=== PATIENT | female | born 1990 | race Caucasian/White ===

== ENCOUNTER 2021-05-29 23:54 | Emergency (ER) | payer SELFPAY ==
[2021-05-30] VITALS (7 sets, daily range): BP systolic 161–227; BP diastolic 84–114; PULSE 89–100; RESP 16–18; TEMP 36.7–37.1; O2SAT 97–100; BMI 60.5
--- NOTE | 2021-05-30 01:11 | USR_ITS ---
PROCEDURE INFORMATION: Exam: US Abdomen, Limited; Right Upper Quadrant Exam date and time: 05/30/2021 1:11 AM Age: 31 years old Clinical indication: Abdominal pain; Acute; Additional info: Ruq pain TECHNIQUE: Imaging protocol: US abdomen. Real time ultrasound with image documentation. Limited exam focused on the right upper quadrant. COMPARISON: CTA Chest-Pulmonary Emb [id number] 12/17/2018 3:43 AM FINDINGS: Liver: Normal. No masses. Gallbladder: Normal. No gallstones. There is no gallbladder wall thickening. Common bile duct: Common bile duct diameter is 5 mm. Pancreas: Visualized pancreas is unremarkable. Right kidney: Normal. No mass. No hydronephrosis. US/US gall bladder [id number] IMPRESSION: Negative examination.
--- NOTE | 2021-05-30 01:12 | ED_ITS ---
HPI - Abdominal Pain General: Chief Complaint: Abdominal Pain Stated Complaint: ABD Pain\N Time Seen by Provider: 05/30/21 00:05 Source: patient Mode of arrival: ambulatory Limitations: no limitations History of Present Illness: 31-year-old female has a history of obesity states that she is eating fried foods roughly 5 hours ago started having right upper quadrant pain. States she had pains multiple times in the past like this after eating but none that is lasted this long states her pain continues and rates it a 7 out of 10. Pain is sharp radiates to her back she is not ever seen one in the past about these planes but she did assume it was her gallbladder denies any fever denies any vomiting has had some slight nausea Associated Symptoms: Denies chills, dysuria and fever(s) Review of Systems Const: Denies: fever(s), chills, body aches or change in appetite Eyes: Denies: blurry vision or eye discomfort ENMT: Denies: throat pain or dental pain Card: Denies: chest pain Resp: Denies: dyspnea GI: Reports: abdominal pain : Denies: dysuria Musc: Denies: neck pain or back pain Skin/Breast: Denies: rash Neuro: Denies: headache(s) Psych: Denies: depression [place]/Lymph: Denies: easy bruising All/Imm: Denies: urticaria PFSH ED PFSH: Medical History No pertinent past medical history neghx: htn,dm,thyroid,dvt/pe Surgical History No pertinent past surgical history Family History Father Heart disease Hypertension Grandmother Diabetes Maternal grandmother Family/Other Diabetes Maternal aunt Maternal uncle Hypertension Maternal uncle Denies family history of Colon cancer Ovarian cancer Hyperlipidemia Breast cancer Family history of thyroid problem Uterine cancer Stroke Physical Exam Const: COMMON NORMALS: no acute distress, patient oriented x3 and healthy cody earing HENMT: COMMON NORMALS: normocephalic and atraumatic HEAD & SCALP: normocephalic and atraumatic Eye: COMMON NORMALS: Equal, round and reactive pupils present and EOMs intact bilaterally PUPIL: Yes Equal, round and reactive pupils present Neck/C-Spine: COMMON NORMALS: full ROM and supple Chest: COMMONS NORMALS: normal inspection of the chest and normal palpation of entire chest wall Resp: COMMON NORMALS: normal respiratory effort, No retractions, No use of accessory muscles and clear to auscultation bilaterally AUSCULTATION: clear to auscultation bilaterally Cardio: COMMON NORMALS: regular rate, regular rhythm and No murmurs present (Cardio) RATE: regular rate RHYTHM: regular rhythm GI: COMMON NORMALS: Normal to inspection, nondistended, normoactive bowel sounds present, Soft to palpation and no masses PALPATION: Yes Soft to palpation and Yes Tenderness to palpation present (GI) Details: RUQ Extremity: COMMON NORMALS: normal to inspection and full ROM Neuro: COMMON NORMALS: patient oriented x3, moves all extremities and no focal motor deficits Psych: COMMON NORMALS: mental status grossly normal, Normal thought process present and cooperative THOUGHT PROCESS: Normal thought process present Skin: COMMON NORMALS: no rashes or lesions noted and no wounds GENERAL SKIN EXAM: no rashes or lesions noted Course Vital Signs: Vital signs: Vital Signs Temperature 98.8 F 05/30/21 02:27 Pulse Rate 100 05/30/21 02:47 Respiratory Rate 18 05/30/21 02:47 Blood Pressure 196/114 05/30/21 02:47 Pulse Oximetry 97 05/30/21 02:47 MDM - Abdominal Pain Medical Decision Making Patient presents with abdominal pain likely biliary dysfunction. Ultrasound showed no signs of cholecystitis patient's blood work here is all normal she is pain-free after pain meds abdominal exam at discharge is benign. She has been hypertensive here she states she has never been hypertensive in her doctor's office before when she checks her blood pressure. Will not start any meds at this time but I will have her check her blood pressure 3 times a day and keep a log and follow-up with her PCP she is to follow-up with surgery for abdominal pain return if worsening she understands agrees to plan. Lab Data : 05/30/21 01:05 05/30/21 01:05 Labs/Radiology: Laboratory Results WBC 13.2 10^3/uL (4.0-10.0) H 05/30/21 01:05 RBC 4.94 10^6/uL (4.1-5.3) 05/30/21 01:05 Hgb 12.8 g/dL (11.5-15.3) 05/30/21 01:05 Hct 39.3 % (37.0-47.0) 05/30/21 01:05 MCV 79.6 fl (81-99) L 05/30/21 01:05 MCH 25.9 pg (28.0-34.0) L 05/30/21 01:05 MCHC 32.6 g/dL (30.0-36.0) 05/30/21 01:05 RDW 14.8 % (12.1-15.1) 05/30/21 01:05 Plt Count 359 10^3/cmm (130-400) 05/30/21 01:05 MPV 9.9 fL (7.4-10.4) 05/30/21 01:05 Neut % (Auto) 77.8 % 05/30/21 01:05 Lymph % (Auto) 15.8 % 05/30/21 01:05 [place] % (Auto) 4.5 % 05/30/21 01:05 Eos % (Auto) 1.4 % 05/30/21 01:05 Baso % (Auto) 0.2 % 05/30/21 01:05 Neut # (Auto) 10.29 10^3/uL (1.8-7.7) H 05/30/21 01:05 Lymph # (Auto) 2.1 10^3/uL (0.8-4.8) 05/30/21 01:05 [place] # (Auto) 0.6 10^3/uL (0.2-0.9) 05/30/21 01:05 Eos # (Auto) 0.2 10^3/uL (0.0-0.8) 05/30/21 01:05 Baso # (Auto) 0.0 10^3/uL (0.0-0.1) 05/30/21 01:05 Nucleated RBC % (auto) 0 % 05/30/21 01:05 Nucleated RBCs # 0.0 /100WBC 05/30/21 01:05 Sodium 133 mmol/L (136-145) L 05/30/21 01:05 Potassium 4.0 mmol/L (3.5-5.1) 05/30/21 01:05 Chloride 98 mmol/L (98-107) 05/30/21 01:05 Carbon Dioxide 26 mmol/L (22-29) 05/30/21 01:05 Anion Gap 13.0 (5-19) 05/30/21 01:05 BUN 12 mg/dL (6-20) 05/30/21 01:05 Creatinine 0.5 mg/dL (0.5-0.9) 05/30/21 01:05 GFR Calculation 142.1 mL/min (90-130) H 05/30/21 01:05 Glucose 140 mg/dL (65-115) H 05/30/21 01:05 Calculated Osmolality 278 mOsm/kg (285-295) L 05/30/21 01:05 Calcium 8.7 mg/dL (8.5-10.5) 05/30/21 01:05 Total Bilirubin 0.4 mg/dL (0.15-1.2) 05/30/21 01:05 AST 11 U/L (0-32) 05/30/21 01:05 ALT 12 U/L (0-33) 05/30/21 01:05 Alkaline Phosphatase 127 IU/L (35-105) H 05/30/21 01:05 Total Protein 7.1 g/dL (6.6-8.7) 05/30/21 01:05 Albumin 4.4 g/dL (3.5-5.2) 05/30/21 01:05 Globulin 2.7 g/dL (1.3-4.6) 05/30/21 01:05 Lipase 17 U/L (13-60) 05/30/21 01:05 HCG, Qual Negative (Negative) 05/30/21 01:05 Urine Color Yellow (Yellow) 05/30/21 01:58 Urine Appearance Clear (CLEAR) 05/30/21 01:58 Urine pH 7 (5-7) 05/30/21 01:58 Ur Specific [place] 1.010 (1.005-1.030) 05/30/21 01:58 Urine Protein Neg (Negative) 05/30/21 01:58 Urine Glucose (UA) Norm (Normal) 05/30/21 01:58 Urine Ketones Negative (Negative) 05/30/21 01:58 Urine Blood 2+ (Negative) H 05/30/21 01:58 Urine Nitrate Negative (Negative) 05/30/21 01:58 Urine Bilirubin Neg (Negative) 05/30/21 01:58 Urine Urobilinogen Norm mg/dL (Negative) 05/30/21 01:58 Ur Leukocyte Esterase Negative (Negative) 05/30/21 01:58 Urine RBC Rare /hpf (0-2) 05/30/21 01:58 Urine WBC Rare /hpf (0-5) 05/30/21 01:58 Ur Squamous Epith Cells Rare /hpf (0-5) 05/30/21 01:58 Amorphous Sediment Not Reportable 05/30/21 01:58 Urine Bacteria Trace /hpf (NONE) 05/30/21 01:58 Discharge Plan Discharge Patient Disposition: Home Clinical Impression: Abdominal pain, Hypertension Condition: Stable Prescriptions: No Action escitalopram oxalate [Lexapro] 10 mg tablet 10 mg PO DAILY 0RF norgestimate-ethinyl estradiol [Sprintec (28)] 0.25-35 mg-mcg tablet 1 tab PO DAILY Qty: 84 4RF Discharge Orders: Discharge ED (Routine); Ordered 05/30/21 Ordered By: Elsy Damon Referrals: [facility] [Other] Diego Andujar MD [Physician] - 1-3 days Discharge Diet: Low Cholesterol Discharge Activity: Resume usual activity Patient Instructions: Abdominal Pain (ED) Coding Level of Care Code ED Customer Operations Intern for Giuliana Fwd Exam Comprehensive
[2021-05-30 01:14] LABS: Basophils % 0.2 %; Eosinophils # 0.2 10^3/uL (0.0-0.8); Eosinophils % 1.4 %; Hematocrit 39.3 % (37.0-47.0); Hemoglobin 12.8 g/dL (11.5-15.3); Lymphocytes # 2.1 10^3/uL (0.8-4.8); Lymphocytes % 15.8 %; Mean Corpuscular HGB Conc 32.6 g/dL (30.0-36.0); Mean Corpuscular Hemoglobin 25.9 pg (28.0-34.0); Mean Corpuscular Volume 79.6 fl (81-99); Mean Platelet Volume 9.9 fL (7.4-10.4); Monocytes # 0.6 10^3/uL (0.2-0.9); Monocytes % 4.5 %; Neutrophils # 10.29 10^3/uL (1.8-7.7); Neutrophils % 77.8 %; Nucleated Red Blood Cells % 0 %; Platelet Count 359 10^3/cmm (130-400); Red Blood Count 4.94 10^6/uL (4.1-5.3); Red Cell Distribution Width 14.8 % (12.1-15.1); White Blood Count 13.2 10^3/uL (4.0-10.0)
[2021-05-30] MEDS: morphine 4 mg/mL SDV 1 mL IVP (01:24)
[2021-05-30] MEDS: ondansetron 2 mg/ML SDV 2 mL 4 MG IVP (01:24)
[2021-05-30 01:41] LABS: Alanine Aminotransferase 12 U/L (0-33); Albumin Level 4.4 g/dL (3.5-5.2); Alkaline Phosphatase 127 IU/L (35-105); Aspartate Amino Transferase 11 U/L (0-32); Blood Urea Nitrogen 12 mg/dL (6-20); Calcium 8.7 mg/dL (8.5-10.5); Carbon Dioxide 26 mmol/L (22-29); Chloride 98 mmol/L (98-107); Globulin 2.7 g/dL (1.3-4.6); Glomerular Filtration Rate 142.1 mL/min (90-130); Glucose 140 mg/dL (65-115); Lipase 17 U/L (13-60); Osmolality Calculated 278 mOsm/kg (285-295); Sodium 133 mmol/L (136-145); Total Bilirubin 0.4 mg/dL (0.15-1.2); Total Protein 7.1 g/dL (6.6-8.7)
[2021-05-30 01:44] LABS: HCG, Serum Qual Negative (Negative)
--- NOTE | 2021-05-30 02:01 | PC.NURSE ---
patient given urine hat and cup and escorted to restroom. patient able to obtain sample. sample labeled and sent to lab. patient returned to room with out difficulty. patient in no obivous distress.
--- NOTE | 2021-05-30 02:28 | PC.NURSE ---
ultrasound at bedside performing procedure. patient in no obvious distress.
[2021-05-30 02:30] LABS: Add Urine Microscopic? YES; Bilirubin Urine Neg (Negative); Blood Urine 2+ (Negative); Glucose Urine UA Norm (Normal); Ketones Urine Negative (Negative); Leukocyte Esterase Urine Negative (Negative); Nitrate Urine Negative (Negative); Protein Urine Neg (Negative); Urine Appearance Clear (CLEAR); Urine Color Yellow (Yellow); Urobilinogen Urine Norm (Negative); pH Urine 7 (5-7)
[2021-05-30 02:31] LABS: Bacteria Urine TRACE /hpf; RBC Urine RARE /hpf (0-2); Squamous Epithelial Cell Urine RARE /hpf (0-5); WBC Urine RARE /hpf (0-5)
[2021-05-30] MEDS: labetalol 5 mg/mL SDV 20mL 10 MG IVP (02:50)
--- NOTE | 2021-05-30 15:08 | DCPLANNER ---
Addendum entered by Haily Mckee 06/26/21 12:06: Patient was seen by Dr. Andujar. Original Note: deputy manager had message to schedule a follow up appointment for patient with Dr. Andujar. deputy manager faxed patients information to the office of Dr. Andujar, who will call patient with appointment information.
== END 2021-05-30 03:51 | disposition home or self-care (01) ==
PROVIDERS: Nurse Practitioner Family; Emergency Provider Emergency Medicine
DX: R10.9 Unspecified abdominal pain (principal); I10 Essential (primary) hypertension
CPT/HCPCS: 76705; 80053; 81001; 83690; 84703; 85025; 96374; 96375; 99283; J2270; J2405; J3490

== ENCOUNTER 2022-11-29 23:34 | Emergency (ER) | payer OTHER, SELFPAY ==
[2022-11-29 23:42] VITALS: BP 157/83; PULSE 84; RESP 18; TEMP 36.7; O2SAT 97; BMI 60.5
--- NOTE | 2022-11-30 00:30 | CTR_ITS ---
PROCEDURE INFORMATION: Exam: CT Abdomen And Pelvis With Contrast Exam date and time: 11/30/2022 1:18 AM Age: 32 years old Clinical indication: Abdominal pain; Patient HX: C/O periumbilical pain. History of pcos. ; Additional info: Abd pain TECHNIQUE: Imaging protocol: Computed tomography of the abdomen and pelvis with contrast. Radiation optimization: All CT scans at this facility use at least one of these dose optimization techniques: automated exposure control; mA and/or kV adjustment per patient size (includes targeted exams where dose is matched to clinical indication); or iterative reconstruction. Contrast material: OMNI 350; Contrast volume: 100 ml; Contrast route: INTRAVENOUS (IV); REPORTING DATA: Count of CT and Cardiac NM exams in prior 12 months: This patient has received 0 known CTs and 0 known cardiac nuclear medicine studies in the 12 months prior to the current study. COMPARISON: US gall bladder [id number] 05/30/2021 2:26 AM RADIATION DOSE METRICS: Total DLP (mGy-cm): 1174.83 FINDINGS: Liver: Normal. No mass. Gallbladder and bile ducts: Heterogeneous density in the gallbladder likely represents a noncalcified stone. Pancreas: Normal. No ductal dilation. Spleen: The spleen is mildly enlarged measuring 13.4 cm. Adrenal glands: Normal. No mass. Kidneys and ureters: Normal. No hydronephrosis. Stomach and bowel: Unremarkable. No obstruction. No mucosal thickening. Appendix: No evidence of appendicitis. Intraperitoneal space: Unremarkable. No free air. No significant fluid collection. Vasculature: Unremarkable. No abdominal aortic aneurysm. Lymph nodes: Unremarkable. No enlarged lymph nodes. Urinary bladder: Unremarkable as visualized. Reproductive: Unremarkable as visualized. Bones/joints: There are [id number] degenerative changes in the visualized spine. Degenerative changes extend across the sacroiliac joints. Soft tissues: Unremarkable. CT/CT abdomen pelvis w con* [id number] IMPRESSION: 1. Heterogeneous density in the gallbladder likely represents a noncalcified stone. 2. The spleen is mildly enlarged measuring 13.4 cm.
[2022-11-30 00:31] LABS: Basophils % 0.2 %; Eosinophils # 0.2 10^3/uL (0.0-0.8); Eosinophils % 1.9 %; Hematocrit 36.7 % (37.0-47.0); Hemoglobin 11.8 g/dL (11.5-15.3); Lymphocytes # 2.4 10^3/uL (0.8-4.8); Lymphocytes % 22.3 %; Mean Corpuscular HGB Conc 32.2 g/dL (30.0-36.0); Mean Corpuscular Hemoglobin 26.9 pg (28.0-34.0); Mean Corpuscular Volume 83.6 fl (81-99); Mean Platelet Volume 9.8 fL (7.4-10.4); Monocytes # 0.7 10^3/uL (0.2-0.9); Monocytes % 6.7 %; Neutrophils % 68.4 %; Nucleated Red Blood Cells % 0 %; Platelet Count 297 10^3/cmm (130-400); Red Blood Count 4.39 10^6/uL (4.1-5.3); Red Cell Distribution Width 14.6 % (12.1-15.1); White Blood Count 10.5 10^3/uL (4.0-10.0)
[2022-11-30] MEDS: sodium chloride 0.9% 1,000 ML 999 ML IV (00:32)
[2022-11-30 00:46] LABS: HCG, Serum Qual Negative (Negative)
[2022-11-30 00:47] LABS: Alanine Aminotransferase 15 U/L (0-33); Albumin Level 4.1 g/dL (3.5-5.2); Alkaline Phosphatase 102 U/L (35-105); Aspartate Amino Transferase 13 U/L (0-32); Blood Urea Nitrogen 13 mg/dL (6-20); Calcium 8.9 mg/dL (8.5-10.5); Carbon Dioxide 27 mmol/L (22-29); Chloride 103 mmol/L (98-107); Globulin 2.6 g/dL (1.3-4.6); Glomerular Filtration Rate 141.2 mL/min (90-130); Glucose 168 mg/dL (65-115); Lipase 25 U/L (13-60); Osmolality Calculated 292 mOsm/kg (285-295); Sodium 139 mmol/L (136-145); Total Bilirubin 0.4 mg/dL (0.15-1.2); Total Protein 6.7 g/dL (6.6-8.7)
[2022-11-30 00:57] VITALS: BP 113/71; PULSE 79; O2SAT 95
--- NOTE | 2022-11-30 01:16 | ED_ITS ---
HPI - Abdominal Pain General: Chief Complaint: Abdominal Pain Stated Complaint: ABD Pain Time Seen by Provider: 11/29/22 23:48 Source: patient History of Present Illness: 32-year-old female complaining of periumbilical and right lower quadrant pain. She notes 12 hours of pain or so. She is minimally nauseated. No vomiting or diarrhea. No fever. No history of belly surgery. She does not believe she is . MD elicited complaint: abdominal pain Pertinent past history: none Location: Periumbilical and RLQ Quality: stabbing and other (Intermittent) Migration to: no migration Associated Symptoms: Denies diarrhea, fever(s), melena, nausea, poor appetite and vomiting Review of Systems Const: Denies: fever(s) ENMT: Denies: throat pain Card: Denies: chest pain Resp: Denies: dyspnea GI: Reports: abdominal pain; Denies: nausea, vomiting, diarrhea or melena : Denies: flank pain or difficulty voiding PFSH ED PFSH: Medical History Hypertension taking lisinopril 10mg daily for management No pertinent past medical history neghx:dm,thyroid,dvt/pe PCO (polycystic ovaries) Psychiatric care Surgical History No pertinent past surgical history Family History Father Heart disease Hypertension Grandmother Diabetes Maternal grandmother Family/Other Diabetes Maternal aunt Maternal uncle Hypertension Maternal uncle Denies family history of Colon cancer Ovarian cancer Hyperlipidemia Breast cancer Family history of thyroid problem Uterine cancer Stroke Social History Smoking and tobacco status: never smoked Physical Exam Const: COMMON NORMALS: no acute distress GENERAL APPEARANCE: cooperative; not ill appearing and not frail appearing HENMT: COMMON NORMALS: normocephalic, atraumatic and Normal external nose present HEAD & SCALP: normocephalic and atraumatic FACE & SINUS: normal facial exam and face symmetric NOSE: Normal external nose present Eye: COMMON NORMALS: Equal, round and reactive pupils present and EOMs intact bilaterally PUPIL: Yes Equal, round and reactive pupils present Neck/C-Spine: GENERAL: Yes trachea midline Chest: CHEST: Yes Symmetrical chest wall rise Resp: COMMON NORMALS: normal respiratory effort, No retractions, No use of accessory muscles and clear to auscultation bilaterally AUSCULTATION: clear to auscultation bilaterally Cardio: COMMON NORMALS: regular rate and regular rhythm RATE: regular rate RHYTHM: regular rhythm GI: COMMON NORMALS: Normal to inspection, nondistended, normoactive bowel sounds present PALPATION: Yes Tenderness to palpation present (GI) (Periumbilical) Details: RLQ Extremity: COMMON NORMALS: no pedal edema Neuro: GREG COMA SCALE: document GCS findings [place] coma scale eye opening: Spontaneous [place] coma scale verbal response: Orientated [place] coma scale motor response: Obey commands [place] coma scale total score: 15 SENSORY EXAM: Yes extremities (intact) Psych: COMMON NORMALS: speech normal SPEECH: Yes normal speech Skin: COMMON NORMALS: no rashes or lesions noted GENERAL SKIN EXAM: no rashes or lesions noted Course Vital Signs: Vital signs: Vital Signs Temperature 98.1 F 11/29/22 23:42 Pulse Rate 95 11/30/22 03:36 Respiratory Rate 16 11/30/22 03:36 Blood Pressure 156/97 11/30/22 01:30 Pulse Oximetry 96 11/30/22 03:36 Oxygen Delivery Me thod Room Air 11/30/22 00:57 MDM - Abdominal Pain Medical Decision Making 32-year-old female presenting with epigastric and right-sided pain. No fever. No vomiting. She is somewhat tender. White count is 10.5. CRP is elevated at 32. Other laboratory is not remarkable. CT shows heterogenous density in the gallbladder likely representing a noncalcified stone. Spleen is mildly enlarged. Likely biliary colic. Pain is improved to some degree. Will discharge for outpatient follow-up with surgery. Lab Data 11/30/22 00:26 11/30/22 00:26 Labs/Radiology: Radiology Impressions Abdomen/Pelvis CT 11/30/22 00:30 IMPRESSION: 1. Heterogeneous density in the gallbladder likely represents a noncalcified stone. 2. The spleen is mildly enlarged measuring 13.4 cm. Laboratory Results WBC 10.5 10^3/uL (4.0-10.0) H 11/30/22 00:26 RBC 4.39 10^6/uL (4.1-5.3) 11/30/22 00:26 Hgb 11.8 g/dL (11.5-15.3) 11/30/22 00:26 Hct 36.7 % (37.0-47.0) L 11/30/22 00: MCV 83.6 fl (81-99) 11/30/22 00: MCH 26.9 pg (28.0-34.0) L 11/30/22 00: MCHC 32.2 g/dL (30.0-36.0) 11/30/22 00: RDW 14.6 % (12.1-15.1) 11/30/22 00: Plt Count 297 10^3/cmm (130-400) 11/30/22 00: MPV 9.8 fL (7.4-10.4) 11/30/22 00: Neut % (Auto) 68.4 % 11/30/22 00: Lymph % (Auto) 22.3 % 11/30/22 00: [place] % (Auto) 6.7 % 11/30/22 00: Eos % (Auto) 1.9 % 11/30/22 00:26 Baso % (Auto) 0.2 % 11/30/22 00: Neut # (Auto) 7.20 10^3/uL (1.8-7.7) 11/30/22 00: Lymph # (Auto) 2.4 10^3/uL (0.8-4.8) 11/30/22 00:26 [place] # (Auto) 0.7 10^3/uL (0.2-0.9) 11/30/22 00:26 Eos # (Auto) 0.2 10^3/uL (0.0-0.8) 11/30/22 00:26 Baso # (Auto) 0.0 10^3/uL (0.0-0.1) 11/30/22 00:26 Nucleated RBC % (auto) 0 % 11/30/22 00: Nucleated RBCs # 0.0 /100WBC 11/30/22 00:26 Sodium 139 mmol/L (136-145) 11/30/22 00: Potassium 4.0 mmol/L (3.5-5.1) 11/30/22 00:26 Chloride 103 mmol/L (98-107) 11/30/22 00:26 Carbon Dioxide 27 mmol/L (22-29) 11/30/22 00:26 Anion Gap 13.0 (5-19) 11/30/22 00:26 BUN 13 mg/dL (6-20) 11/30/22 00:26 Creatinine 0.5 mg/dL (0.5-0.9) 11/30/22 00:26 GFR Calculation 141.2 mL/min (90-130) H 11/30/22 00:26 Glucose 168 mg/dL (65-115) H 11/30/22 00:26 Calculated Osmolality 292 mOsm/kg (285-295) 11/30/22 00:26 Calcium 8.9 mg/dL (8.5-10.5) 11/30/22 00:26 Total Bilirubin 0.4 mg/dL (0.15-1.2) 11/30/22 00:26 AST 13 U/L (0-32) 11/30/22 00: ALT 15 U/L (0-33) 11/30/22 00:26 Alkaline Phosphatase 102 U/L (35-105) 11/30/22 00:26 C-Reactive Protein 32.0 mg/L (0.0-4.9) H 11/30/22 00:26 Total Protein 6.7 g/dL (6.6-8.7) 11/30/22 00:26 Albumin 4.1 g/dL (3.5-5.2) 11/30/22 00:26 Globulin 2.6 g/dL (1.3-4.6) 11/30/22 00:26 Lipase 25 U/L (13-60) 11/30/22 00:26 HCG, Qual Negative (Negative) 11/30/22 00:26 Urine Color Yellow (Yellow) 11/30/22 01:55 Urine Appearance Clear (CLEAR) 11/30/22 01:55 Urine pH 6.5 (5-7) 11/30/22 01:55 Ur Specific [place] 1.015 (1.005-1.030) 11/30/22 01:55 Urine Protein Neg (Negative) 11/30/22 01:55 Urine Glucose (UA) Norm (Normal) 11/30/22 01:55 Urine Ketones Negative (Negative) 11/30/22 01:55 Urine Blood Trace (Negative) H 11/30/22 01:55 Urine Nitrate Negative (Negative) 11/30/22 01:55 Urine Bilirubin Neg (Negative) 11/30/22 01:55 Urine Urobilinogen Norm mg/dL (Negative) 11/30/22 01:55 Ur Leukocyte Esterase Negative (Negative) 11/30/22 01:55 Urine RBC 0-4 /hpf (0-2) H 11/30/22 01:55 Urine WBC None /hpf (0-5) 11/30/22 01:55 Ur Squamous Epith Cells 0-4 /hpf (0-5) H 11/30/22 01:55 Amorphous Sediment Not Reportable 11/30/22 01:55 Urine Bacteria Trace /hpf (NONE) 11/30/22 01:55 Urine Mucus Trace /hpf 11/30/22 01:55 Discharge Plan Discharge Patient Disposition: Home Clinical Impression: Biliary colic Condition: Stable Prescriptions: New hydrocodone-acetaminophen 5-325 mg tablet 1 tab PO Q8H PRN (Reason: pain) Qty: 7 0RF ondansetron 4 mg film 4 mg PO DAILY PRN (Reason: nausea and vomiting) Qty: 10 0RF No Action escitalopram oxalate [Lexapro] 10 mg tablet 10 mg PO DAILY lisinopril 10 mg tablet 10 mg PO DAILY triamcinolone acetonide 0.1 % ointment 1 applic topical BID Qty: 80 2RF Rx Instructions: Apply to affected area no more than two weeks per month. Not for face. norethindrone (contraceptive) 0.35 mg tablet 0.35 mg PO DAILY Qty: 84 3RF Discharge Orders: Discharge ED (Routine); Ordered 11/30/22 Ordered By: Akin Guthrie Referrals: Diego Andujar MD [Physician] - 4-7 days Patient Instructions: Abdominal Pain (ED), Opioid Safety, Pain Management Activity Restrictions/Additional Instructions: Return for fever greater than 100, vomiting liquids or medications, worsening pain despite treatment, other concerning symptoms. Follow-up with your doctor next week. Further outpatient testing may be needed. Coding Level of Care Code ED Tumbling Barrel Painter for Giuliana Demarco
[2022-11-30] MEDS: iohexol 350 mg/mL 500 mL Btl (per mL) IV (01:18)
[2022-11-30 01:30] VITALS: BP 156/97; PULSE 92; O2SAT 97
[2022-11-30 02:28] LABS: Add Urine Microscopic? YES; Bilirubin Urine Neg (Negative); Blood Urine Trace (Negative); Glucose Urine UA Norm (Normal); Ketones Urine Negative (Negative); Leukocyte Esterase Urine Negative (Negative); Nitrate Urine Negative (Negative); Protein Urine Neg (Negative); Specific Gravity, Urine 1.015 (1.005-1.030); Urine Appearance Clear (CLEAR); Urine Color Yellow (Yellow); Urobilinogen Urine Norm (Negative); pH Urine 6.5 (5-7)
[2022-11-30 02:36] LABS: Bacteria Urine TRACE /hpf; Mucus Urine TRACE /hpf; RBC Urine 0-4 /hpf (0-2); Squamous Epithelial Cell Urine 0-4 /hpf (0-5)
[2022-11-30] MEDS: ondansetron 2 mg/ML SDV 2 mL 4 MG IVP (03:01)
[2022-11-30] MEDS: morphine 4 mg/mL SDV 1 mL IVP (03:04)
[2022-11-30 03:36] VITALS: PULSE 95; RESP 16; O2SAT 96
== END 2022-11-30 03:21 | disposition home or self-care (01) ==
PROVIDERS: Emergency Provider Emergency Medicine
DX: K80.50 Calculus of bile duct without cholangitis or cholecystitis without obstruction (principal); I10 Essential (primary) hypertension; Z79.899 Other long term (current) drug therapy
CPT/HCPCS: 74177; 80053; 81001; 83690; 84703; 85025; 86140; 96361; 96374; 96375; 99285; J2270; J2405; J7030; Q9967

== ENCOUNTER 2023-08-07 10:41 | Outpatient (CLI) | payer OTHER, SELFPAY | END 2023-08-07 10:42 | disposition home or self-care (01) | PROVIDERS: Visit Provider Nurse Practitioner Family | DX: Z32.01 Encounter for pregnancy test, result positive (principal) | CPT/HCPCS: 84702 ==

== ENCOUNTER 2023-08-20 18:52 | Emergency (ER) | payer OTHER, SELFPAY ==
[2023-08-20 18:55] VITALS: BP 167/81; PULSE 78; RESP 16; TEMP 36.9; O2SAT 95
--- NOTE | 2023-08-20 19:22 | USR_ITS ---
PROCEDURE INFORMATION: Exam: US First Trimester, Transabdominal and US , Transvaginal Exam date and time: 08/20/2023 7:59 PM Age: 33 years old Clinical indication: Lmp or gestational age (in weeks): 10w 2d by lmp 9w 0d by crl; Antepartum complications; ; Patient HX: Morbidly obesity g1-p0 presenting with left pelvic cramping and vaginal bleeding. Note that there was no blood seen on the endovaginal transducer at end exam. Also no overt bleeding onto chux pad. I see no blood. ; Additional info: Cramping/bleeding LABS AND CLINICAL REPORTS: Last menstrual period start date: 06/09/2023 Gestational age (Established): 10 w 2 d TECHNIQUE: Imaging protocol: Real-time transabdominal obstetrical ultrasound of the maternal pelvis and a first trimester , less than 14 weeks 0 days, with image documentation. Transvaginal imaging was used for better evaluation of the fetus, adnexa, and/or cervix. COMPARISON: No relevant prior studies available. FINDINGS: Gestation: Intrauterine gestation is visualized. pole is visualized. No yolk sac is visualized. Embryonic/ heart rate: 166 bpm Extra-embryonic membranes/Placenta: Unremarkable. No subchorionic bleed. Amniotic fluid: Amniotic fluid and extra-amniotic fluid is normal for gestational age. BIOMETRY: Gestational age (AUA): 9 w 0 d Estimated due date (AUA): 03/24/2024 [place]-Rump length (CRL): 23.2 mm. EGA (CRL) is 9 w 0 d MATERNAL: Uterus: Uterus measures 11.01 cm x 5.68 cm x 4.81 cm. Cervix: Unremarkable. Right ovary/adnexa: Not visualized. Left ovary/adnexa: Not visualized. Intraperitoneal space: No intraperitoneal free fluid. US/US OB <=14 wk fetus w transvag IMPRESSION: Single live intrauterine .
--- NOTE | 2023-08-20 19:23 | ED_ITS ---
HPI - Female Genitourinary 2 General: Chief complaint: Vaginal Bleeding Stated complaint: 10 wks spotting, cramping Time Seen by Provider: 08/20/23 19:05 Source: patient Mode of arrival: ambulatory Limitations: no limitations History of Present Illness: Patient is a 33-year-old female at approximately 10 weeks here for complaints of abdominal cramping and spotting when wiping. Symptoms started yesterday. She has not noticed any bleeding apart from the small amount of pink spotting while wiping on the toilet paper. She states she plans on using Dr. Dalal for her OB but she has not seen them yet. Appointment is scheduled for later this month. She states based on her LMP she should be roughly 10 weeks. She has not had a confirmed IUP at this point. MD elicited complaint: vaginal bleeding and pelvic pain Onset (ago): day(s) Severity: mild Quality of pain: cramping Consistency: intermittent Vaginal discharge: none Vaginal bleeding: scant Exacerbating factors: none Relieving factors: none Associated symptoms: Reports no associated symptoms; Deny nausea or vaginal discharge Treatment prior to arrival: none Sexual activity: Yes Patient : Yes Date of Last Menstrual Period: 06/09/23 Related Data: : 1 Review of Systems 2 Card: Denies: chest pain Resp: Denies: dyspnea GI: Denies: nausea, vomiting or diarrhea : Denies: flank pain, difficulty voiding, dysuria, urinary frequency, urinary urgency, urinary hesitancy, vaginal odor or vaginal discharge Musc: Denies: back pain Neuro: Denies: dizziness PFSH ED 2 PFSH: Medical History Psychiatric care Hypertension taking lisinopril 10mg daily for management No pertinent past medical history neghx:dm,thyroid,dvt/pe PCP: Kiersten Denson PCO (polycystic ovaries) Surgical History No pertinent past surgical history Family History Father Heart disease Hypertension Grandmother Diabetes Maternal grandmother Family/Other Diabetes Maternal aunt Maternal uncle Hypertension Maternal uncle Denies family history of Colon cancer Ovarian cancer Hyperlipidemia Breast cancer Family history of thyroid problem Uterine cancer Stroke Social History Smoking and tobacco/nicotine status: never used tobacco/nicotine Female Reproductive History: Date of last menstrual period: 06/09/23 G ravida: 1 Physical Exam 2 Const: COMMON NORMALS: no acute distress, patient oriented x3, no limitations, alert and well nourished GENERAL APPEARANCE: cooperative NUTRITIONAL APPEARANCE: obese morbidly obese (BMI is 66.7) ORIENTATION/CONSCIOUSNESS: Yes awake, Yes oriented to person, Yes oriented to place and Yes oriented to time Resp: COMMON NORMALS: normal respiratory effort and clear to auscultation bilaterally AUSCULTATION: clear to auscultation bilaterally Cardio: COMMON NORMALS: regular rate and regular rhythm RATE: regular rate RHYTHM: regular rhythm GI: COMMON NORMALS: Normal to inspection, nondistended, normoactive bowel sounds present, Soft to palpation, non-tender, No hepatosplenomegaly present and no masses INSPECTION: Yes normal to inspection PALPATION: Yes Soft to palpation and Yes No hepatosplenomegaly present : COMMON NORMALS: Yes no CVA tenderness BLADDER/KIDNEY EXAM: Yes no CVA tenderness Back/Pelvis: COMMON NORMALS: no CVA tenderness Extremity: GENERAL: Yes normal exam except as noted Neuro: RASHI COMA SCALE: document GCS findings [place] coma scale eye opening: Spontaneous [place] coma scale verbal response: Orientated [place] coma scale motor response: Obey commands Rashi coma scale total score: 15 COMMON NORMALS: patient oriented x3, moves all extremities, no focal motor deficits and no sensory deficits noted SENSORIUM/ORIENTATION: Yes alert, Yes oriented to person, Yes oriented to place and Yes oriented to time Skin: COMMON NORMALS: no rashes or lesions noted GENERAL SKIN EXAM: no rashes or lesions noted Course 2 Vital Signs: Vital signs: Vital Signs Temperature 98.5 F 08/20/23 18:55 Pulse Rate 78 08/20/23 18:55 Respiratory Rate 16 08/20/23 18:55 Blood Pressure 167/81 08/20/23 18:55 Pulse Oximetry 95 08/20/23 18:55 Oxygen Delivery Me thod Room Air 08/20/23 18:55 MDM - Female Medical Decision Making Patient's ultrasound showing a live IUP with dates of 9w0d and a HR of 166. Blood work is unremarkable. She is Rh- and thus was given RhoGAM due to the bleeding. She states she has a follow-up appoint with Dr. Dalal later this month. Return ED precautions given. Medical Records I reviewed the patient's medical records. Lab Data I reviewed the patient's lab results. 08/20/23 21:00 Radiology Impressions Obstetrics Ultrasound 08/20/23 19:22 IMPRESSION: Single live intrauterine . Laboratory Results WBC 11.63 10^3/uL (3.29-11.43) H 08/20/23 21:00 Corrected WBC Cancelled 08/20/23 20:35 RBC 4.25 10^6/uL (3.85-5.65) 08/20/23 21:00 Hgb 11.60 g/dL (11.27-16.99) 08/20/23 21:00 Hct 36.5 % (36-47) 08/20/23 21:00 MCV 85.9 fl (85-98) 08/20/23 21:00 MCH 27.3 pg (27-33) 08/20/23 21:00 MCHC 31.8 g/dL (30-55) 08/20/23 21:00 RDW 14.7 % (12.1-15.1) 08/20/23 21:00 Plt Count 292 10^3/cmm (157-399) 08/20/23 21:00 MPV 10.2 fL (7.4-10.4) 08/20/23 21:00 Gran % Cancelled 08/20/23 20:35 Neut % (Auto) 64.0 % 08/20/23 21:00 Lymph % (Auto) 27.1 % 08/20/23 21:00 [place] % (Auto) 5.8 % 08/20/23 21:00 Eos % (Auto) 1.7 % 08/20/23 21:00 Baso % (Auto) 0.3 % 08/20/23 21:00 Neut # (Auto) 7.43 10^3/uL (1.8-7.7) 08/20/23 21:00 Lymph # (Auto) 3.2 10^3/uL (0.8-4.8) 08/20/23 21:00 [place] # (Auto) 0.7 10^3/uL (0.2-0.9) 08/20/23 21:00 Eos # (Auto) 0.2 10^3/uL (0.0-0.8) 08/20/23 21:00 Baso # (Auto) 0.0 10^3/uL (0.0-0.1) 08/20/23 21:00 Absolute Gran (auto) Cancelled 08/20/23 20:35 Nucleated RBC % (auto) Cancelled 08/20/23 20:35 Nucleated RBCs # Cancelled 08/20/23 20:35 Ser , Semi-Qnt 91025.00 mIU/mL 08/20/23 20:35 Urine Color Yellow (Yellow) 08/20/23 19:25 Urine Appearance Sl hazy (CLEAR) A 08/20/23 19:25 Urine pH 5 (5-7) 08/20/23 19:25 Ur Specific [place] 1.025 (1.005-1.030) 08/20/23 19:25 Urine Protein Neg (Negative) 08/20/23 19:25 Urine Glucose (UA) Norm (Normal) 08/20/23 19:25 Urine Ketones Negative (Negative) 08/20/23 19:25 Urine Blood 3+ (Negative) H 08/20/23 19:25 Urine Nitrate Negative (Negative) 08/20/23 19:25 Urine Bilirubin Neg (Negative) 08/20/23 19:25 Urine Urobilinogen Norm mg/dL (Negative) 08/20/23 19:25 Ur Leukocyte Esterase Negative (Negative) 08/20/23 19:25 Urine RBC 0-4 /hpf (0-2) H 08/20/23 19:25 Urine WBC None /hpf (0-5) 08/20/23 19:25 Ur Squamous Epith Cells 10-15 /hpf (0-5) H 08/20/23 19:25 Amorphous Sediment Not Reportable 08/20/23 19:25 Urine Bacteria Trace /hpf (NONE) 08/20/23 19:25 Urine Mucus Trace /hpf 08/20/23 19:25 Blood Type O Negative 08/20/23 21:14 Rho(D) Type Rh negative 08/20/23 21:14 Antibody Screen Negative 08/20/23 21:14 All radiology interpretation(s) finalized by discharge Discharge Plan Discharge Patient Disposition: Home Clinical Impression: Bleeding in early Condition: Stable Prescriptions: No Action lisinopril 10 mg tablet 10 mg PO DAILY triamcinolone acetonide 0.1 % ointment 1 applic topical BID PRN Rx Instructions: Apply to affected area no more than two weeks per month. Not for face. medroxyprogesterone [Provera] 10 mg tablet 10 mg PO QDAY Qty: 10 6RF MelatoninMax 10 mg tablet,chewable 10 mg PO DAILY escitalopram oxalate [Lexapro] 20 mg tablet 20 mg PO DAILY Qty: 90 0RF Rx Instructions: Take one tablet by mouth every evening hydrocodone-acetaminophen 5-325 mg tablet 1 tab PO Q8H PRN (Reason: pain) Qty: 7 0RF ondansetron 4 mg film 4 mg PO DAILY PRN (Reason: nausea and vomiting) Qty: 10 0RF Discharge Orders: Discharge ED (Routine); Ordered 08/20/23 Ordered By: Esther Sam Referrals: Kiersten Chávez, RELIGION TEACHER [Primary Care Provider] - Activity Restrictions/Additional Instructions: As we discussed please follow-up with Dr. Dalal as you are currently scheduled. You did receive RhoGAM today as you are Rh-. Ultrasound today showed a live intrauterine measuring 9w0d with a heart rate of 166. Coding Level of Care Code ED Services Clerk for Giuliana Demarco
[2023-08-20 19:59] LABS: Blood Urine 3+ (Negative); Glucose Urine UA Norm (Normal); Ketones Urine Negative (Negative); Protein Urine Neg (Negative); Specific Gravity, Urine 1.025 (1.005-1.030); Urine Appearance SL Hazy (CLEAR); Urine Color Yellow (Yellow); pH Urine 5 (5-7)
[2023-08-20 20:00] LABS: Add Urine Microscopic? YES; Bilirubin Urine Neg (Negative); Leukocyte Esterase Urine Negative (Negative); Nitrate Urine Negative (Negative); Urobilinogen Urine Norm (Negative)
[2023-08-20 20:02] LABS: Add Urine Culture? No; Bacteria Urine TRACE /hpf; Mucus Urine TRACE /hpf; RBC Urine 0-4 /hpf (0-2)
[2023-08-20 21:24] LABS: Hematocrit 36.5 % (36-47); Mean Corpuscular HGB Conc 31.8 g/dL (30-55); Mean Corpuscular Hemoglobin 27.3 pg (27-33); Mean Corpuscular Volume 85.9 fl (85-98); Red Blood Count 4.25 10^6/uL (3.85-5.65); White Blood Count 11.63 10^3/uL (3.29-11.43)
[2023-08-20 21:25] LABS: Basophils % 0.3 %; Eosinophils # 0.2 10^3/uL (0.0-0.8); Eosinophils % 1.7 %; Lymphocytes # 3.2 10^3/uL (0.8-4.8); Lymphocytes % 27.1 %; Mean Platelet Volume 10.2 fL (7.4-10.4); Monocytes # 0.7 10^3/uL (0.2-0.9); Monocytes % 5.8 %; Neutrophils # 7.43 10^3/uL (1.8-7.7); Platelet Count 292 10^3/cmm (157-399); Red Cell Distribution Width 14.7 % (12.1-15.1)
[2023-08-20] MEDS: RHO(D) IMMUNE GLOBULIN 1,500 UNIT/2 ML SYRINGE 1500 UNIT IM (22:46)
[2023-08-20 23:12] VITALS: PULSE 84; RESP 16; O2SAT 96
[2023-08-20 23:13] VITALS: PULSE 84; RESP 16; O2SAT 96
== END 2023-08-20 23:14 | disposition home or self-care (01) ==
PROVIDERS: Emergency Medicine; Emergency Provider Physician Assistant; PCP Nurse Practitioner Family
DX: O20.9 Hemorrhage in early pregnancy, unspecified (principal); O16.1 Unspecified maternal hypertension, first trimester; Z3A.09 9 weeks gestation of pregnancy; Z29.13 Encounter for prophylactic Rho(D) immune globulin
CPT/HCPCS: 36415; 76801; 76817; 81001; 84702; 85025; 86850; 86900; 90384; 96372; 99284

== ENCOUNTER 2024-01-10 11:38 | Outpatient (CLI) | payer BC, SELFPAY ==
[2024-01-10] VITALS (37 sets, daily range): BP systolic 137–186; BP diastolic 63–105; PULSE 72–82; TEMP 36.8; O2SAT 96–98; BMI 71.1
--- NOTE | 2024-01-10 12:34 | USR_ITS ---
PROCEDURE INFORMATION: Exam: US Biophysical Profile Without Non-Stress Test Exam date and time: 01/10/2024 3:02 PM Age: 33 years old Clinical indication: Other: Decreased movement; ; Additional info: Decreased movement TECHNIQUE: Imaging protocol: US biophysical profile without non-stress testing. COMPARISON: US OB >= 14 weeks fetus [address] 11/24/2023 8:10 AM FINDINGS: Limited exam. heart rate: 145 bpm BIOPHYSICAL PROFILE: breathing (BPP): 0 out of 2. gross body movement (BPP): 2 out of 2. tone (BPP): 2 out of 2. Amniotic fluid (BPP): 2 out of 2. MATERNAL ANATOMY: Cervix: Cervical length measures 5 cm. US/US OB BPP wo NST 67376 IMPRESSION: 1. Limited exam. Biophysical profile score 6 out of 8.
[2024-01-10 12:49] LABS: Charge for UA Resulting for Rev
[2024-01-10 12:57] LABS: Bilirubin Urine Negative (Negative); Blood Urine Negative (Negative); Glucose Urine UA Negative (Normal); Ketones Urine Negative (Negative); Leukocyte Esterase Urine Negative (Negative); Nitrate Urine Negative (Negative); Protein Urine Negative (Negative); Specific Gravity, Urine 1.019 (1.005-1.030); Urine Appearance Clear (CLEAR); Urine Color Yellow (Yellow); pH Urine 5.5 (5-7)
[2024-01-10 12:59] LABS: Bacteria Urine 1+ /hpf; Basophils % 0.2 %; Eosinophils # 0.1 10^3/uL (0.0-0.8); Hematocrit 33.4 % (36-47); Hyaline Casts Urine 0.81 /lpf; Lymphocytes # 1.4 10^3/uL (0.8-4.8); Lymphocytes % 14.5 %; Mean Corpuscular Volume 81.3 fl (85-98); Mean Platelet Volume 10.7 fL (7.4-10.4); Monocytes # 0.6 10^3/uL (0.2-0.9); Monocytes % 6.4 %; Neutrophils # 7.29 10^3/uL (1.8-7.7); Neutrophils % 77.4 %; Nucleated Red Blood Cells % 0 %; Platelet Count 229 10^3/cmm (157-399); RBC Urine 0-2 /hpf (0-2); Red Blood Count 4.11 10^6/uL (3.85-5.65); Red Cell Distribution Width 15.5 % (12.1-15.1); Squamous Epithelial Cell Urine 21-50 /hpf (0-5); White Blood Count 9.42 10^3/uL (3.29-11.43)
[2024-01-10 13:11] LABS: Alanine Aminotransferase 13 U/L (0-33); Albumin Level 3.4 g/dL (3.5-5.2); Alkaline Phosphatase 170 U/L (35-105); Anion Gap 14.8 (5-19); Aspartate Amino Transferase 13 U/L (0-32); Blood Urea Nitrogen 7 mg/dL (6-20); Calcium 8.7 mg/dL (8.5-10.5); Carbon Dioxide 21 mmol/L (22-29); Chloride 104 mmol/L (98-107); Creatinine Clr Calc Pharmacy 494.7952; Globulin 2.9 g/dL (1.3-4.6); Glomerular Filtration Rate 181.6 mL/min (90-130); Glucose 94 mg/dL (65-115); Osmolality Calculated 280 mOsm/kg (285-295); Potassium 3.8 mmol/L (3.5-5.1); Sodium 136 mmol/L (136-145); Total Bilirubin 0.5 mg/dL (0.15-1.2); Total Protein 6.3 g/dL (6.6-8.7)
[2024-01-10 13:12] LABS: Uric Acid 4.7 mg/dL (2.4-5.7)
[2024-01-10 13:13] LABS: Urine Creatinine 115 mg/dL (28-217); Urine Protein Random 12 mg/dL
[2024-01-10] MEDS: labetalol 5 mg/mL SDV 20mL 20 MG IVP ×2 (13:48→15:23)
[2024-01-10] MEDS: NIFEdipine ER (24 hr) 30 mg Tablet PO ×3 (13:57→15:32)
[2024-01-10] MEDS: labetalol 5 mg/mL SDV 20mL 40 MG IVP (16:35)
[2024-01-10] MEDS: labetalol 5 mg/mL SDV 20mL 80 MG IVP (17:34)
[2024-01-10] MEDS: labetalol 200 mg Tablet PO (19:23)
[2024-01-10] MEDS: betamethasone susp 6 mg/mL 1 mL (per mL) 12 MG IM (19:23)
[2024-01-11] VITALS (14 sets, daily range): BP systolic 125–173; BP diastolic 57–89; PULSE 74–87
[2024-01-11] MEDS: acetaminophen 500 mg Tablet 1000 MG PO (04:27)
--- NOTE | 2024-01-11 09:23 | P.SS_ITS ---
Short Stay Summary Providers Date of Admit/Discharge: 01/17/24 Attending Provider: Yon Dalal MD Primary Care Provider: MELONY Nelson Chief Complaint: increased blood pressure decreased movement HPI History of Present Illness Paula Ribeiro is a 33 year old 1 female at 30 weeks estimated gestational age who presented to the hospital due to concerns regarding her blood pressure. Upon arrival to hospital she was found to have multiple elevated blood pressures. She had some blood pressure that were in the severe range. A preeclamptic panel was performed which was found to be negative. She was found to have elevated blood pressures for which we initially used IV labetalol. We then transitioned to oral labetalol and nifedipine XL. Her blood pressure was somewhat difficult to control, but we will do slowly ramp up medication to the point that her blood pressure was adequately controlled prior to discharge. She had no other signs of preeclampsia during her hospital stay. Review of Systems General: Reports: 10 or more systems reviewed and unremarkable except in HPI and below Const: Reports: fatigue; Denies: fever(s) Eyes: Denies: change in vision Card: Denies: chest pain Musc: Reports: back pain Neuro: Reports: headache(s) (Occasional headaches. No increase in frequency.) [place]/Lymph: Denies: easy bruising Home Meds/Allergies Home Medications and Allergies Home Medications Medication Instructions Recorded Confirmed Type aspirin 81 mg tablet,delayed 81 mg PO DAILY 09/23/23 01/11/24 History release docosahexaenoic acid 200 mg 2 mg PO DAILY 09/23/23 01/11/24 History capsule ( DHA) hydralazine 25 mg PO TID 01/11/24 01/11/24 History labetalol 200 mg tablet 400 mg PO BID 01/11/24 01/11/24 History Allergies Allergy/AdvReac Type Severity Reaction Status Date / Time amoxicillin Allergy Mild Rash, Hives Verified 01/11/24 21:37 doxycycline Allergy Mild rash, hives Verified 01/11/24 21:37 Penicillins Allergy Mild Rash, hives Verified 01/11/24 21:37 PFSH Acute PFSH: Medical History Psychiatric care Hypertension taking lisinopril 10mg daily for management No pertinent past medical history neghx:dm,thyroid,dvt/pe PCP: Kiersten Denson PCO (polycystic ovaries) Surgical History No pertinent past surgical history Family History Father Heart disease Hypertension Grandmother Diabetes Maternal grandmother Family/Other Diabetes Maternal aunt Maternal uncle Hypertension Maternal uncle Denies family history of Colon cancer Ovarian cancer Hyperlipidemia Breast cancer Family history of thyroid problem Uterine cancer Stroke Social History Smoking and tobacco/nicotine status: unknown if used tobacco/nicotine Female Reproductive History: : 1 Vitals/I&O/Wt Last Vital Signs Temp 98.2 F 01/10/24 12:15 Pulse 84 01/11/24 09:18 BP 162/74 01/11/24 09:18 Pulse Ox 97 01/10/24 12:31 Weight last 48 hrs Weight 352 lb Physical Exam Const: COMMON NORMALS: patient oriented x3 and alert HENMT: COMMON NORMALS: moist oral mucous membranes HEAD & SCALP: normal to inspection Chest: COMMONS NORMALS: normal inspection of the chest Resp: COMMON NORMALS: clear to auscultation bilaterally AUSCULTATION: clear to auscultation bilaterally Cardio: COMMON NORMALS: regular rate and regular rhythm RATE: regular rate RHYTHM: regular rhythm GI: INSPECTION: Yes normal to inspection and Yes other (Gravid) Extremity: COMMON NORMALS: normal to inspection GENERAL: Yes edema (Trace) Neuro: COMMON NORMALS: patient oriented x3, moves all extremities and no sensory deficits noted SENSORIUM/ORIENTATION: Yes alert Psych: COMMON NORMALS: mental status grossly normal Skin: COMMON NORMALS: no rashes or lesions noted GENERAL SKIN EXAM: no rashes or lesions noted SSS Data Data Completed and Pending: Completed Studies During Hospitalization Category Date Time Status US OB BPP w o NST 35902 Routin e Ultrasound 01/10/24 12:34 Completed Discharge Plan Discharge Patient Disposition: Home Prescriptions: New nifedipine [Procardia XL] 90 mg tablet extended release 24hr 90 mg PO DAILY Qty: 30 3RF Continued aspirin 81 mg tablet,delayed release (DR/EC) 81 mg PO DAILY DHA 200 mg capsule 2 mg PO DAILY escitalopram oxalate [Lexapro] 20 mg tablet 20 mg PO DAILY Qty: 90 0RF Rx Instructions: Take one tablet by mouth every evening fluticasone propionate [Flonase Allergy Relief] 50 mcg/actuation spray,suspension 2 spray intranasal DAILY Qty: 16 0RF Rx Instructions: administer into each nostril Discontinued lisinopril 10 mg tablet 10 mg PO DAILY triamcinolone acetonide 0.1 % ointment 1 applic topical BID PRN Rx Instructions: Apply to affected area no more than two weeks per month. Not for face. MelatoninMax 10 mg tablet,chewable 10 mg PO DAILY ondansetron 4 mg film 4 mg PO DAILY PRN (Reason: nausea and vomiting) Qty: 10 0RF No Action hydralazine 25 mg PO TID labetalol 200 mg tablet 400 mg PO BID Discharge Orders: Discharge Order (Routine); Ordered 01/11/24 Ordered By: Yon Dalal Referrals: Yon Dalal MD [Physician] - 01/15/24 Diet: Low Salt Activity: Limit activity as instructed Patient Instructions: Labetalol (By mouth), Nifedipine (By mouth), Preeclampsia During (DC), OB Undelivered Discharge Activity Restrictions/Additional Instructions: Call on Friday morning to schedule a biophysical profile (BPP) for that day. If needed, contact Dr. Dalal's nurse through the patient portal for scheduling issues. - Make an appointment to see Dr. Dalal on following BPP. - Will need to schedule a BPP every Friday and until delivery. - Check blood pressure 1-2 times daily. If greater than 160/100, rest, recheck in 30 minutes. If still high, report to the OB department. Discharge Date/Time: 01/11/24 14:55 Attestations Medical Necessity Statement*: The patient required an overnight hospital stay due to persistent blood pressures elevated greater than a systolic of 160 despite multiple interventions with IV and oral blood pressure treatments. Time Spent in Patient Care*: greater than 30 min Quality Metrics Clinical Quality Measures: [ No reported AMI, CVA or VTE this stay ] Coding Level of Care Code Acute Code for Chg [id number]
[2024-01-11] MEDS: labetalol 200 mg Tablet PO ×2 (09:31→10:50)
[2024-01-11] MEDS: hyDRALAzine 25 mg Tablet PO (11:59)
== END 2024-01-11 14:55 | disposition home or self-care (01) ==
LOC: OPOB 11:44 → OBGYN 11:51
PROVIDERS: PCP Nurse Practitioner Family; Visit Provider Family Medicine
DX: O36.8190 Decreased fetal movements, unspecified trimester, not applicable or unspecified (principal); O16.9 Unspecified maternal hypertension, unspecified trimester; Z3A.00 Weeks of gestation of pregnancy not specified
CPT/HCPCS: 36415; 59025; 76819; 80053; 81003; 81015; 82570; 84156; 84550; 85025; 96372; 96374; 96376; 99211; J0702; J3490

== ENCOUNTER 2024-01-11 19:36 | Outpatient (CLI) | payer BC, SELFPAY ==
[2024-01-11] VITALS (7 sets, daily range): BP systolic 145–194; BP diastolic 71–84; PULSE 76–91; TEMP 36.1; BMI 71.1
[2024-01-11] MEDS: betamethasone susp 6 mg/mL 1 mL (per mL) 12 MG IM (20:14)
== END 2024-01-11 21:31 | disposition home or self-care (01) ==
LOC: OPOB 19:38 → OBGYN 19:39
PROVIDERS: PCP Nurse Practitioner Family; Visit Provider Family Medicine
DX: O26.899 Other specified pregnancy related conditions, unspecified trimester (principal); Z3A.00 Weeks of gestation of pregnancy not specified
CPT/HCPCS: 96372; J0702

== ENCOUNTER 2024-02-09 13:54 | Inpatient (IN) | payer BC, SELFPAY ==
[2024-02-08 23:23] VITALS: BP 183/88; PULSE 79
[2024-02-08 23:24] VITALS: BP 177/83; PULSE 78
[2024-02-08 23:36] VITALS: BP 176/93; PULSE 76
[2024-02-08 23:43] VITALS: BP 178/92; PULSE 73
[2024-02-09] VITALS (91 sets, daily range): BP systolic 128–181; BP diastolic 64–103; PULSE 67–89; RESP 18–20; TEMP 36.5–36.7; O2SAT 94–96; BMI 73.9
[2024-02-09] MEDS: labetalol 5 mg/mL SDV 20mL 20 MG IVP (00:24)
[2024-02-09 00:26] LABS: Basophils % 0.1 %; Eosinophils # 0.2 10^3/uL (0.0-0.8); Eosinophils % 1.7 %; Hematocrit 31.9 % (36-47); Lymphocytes # 1.9 10^3/uL (0.8-4.8); Lymphocytes % 17.3 %; Mean Corpuscular HGB Conc 32.9 g/dL (30-55); Mean Platelet Volume 11.1 fL (7.4-10.4); Monocytes # 0.7 10^3/uL (0.2-0.9); Monocytes % 6.4 %; Neutrophils # 7.99 10^3/uL (1.8-7.7); Neutrophils % 73.4 %; Nucleated Red Blood Cells % 0 %; Platelet Count 188 10^3/cmm (157-399); Red Blood Count 3.89 10^6/uL (3.85-5.65); Red Cell Distribution Width 16.1 % (12.1-15.1); White Blood Count 10.89 10^3/uL (3.29-11.43)
[2024-02-09 00:27] LABS: Bilirubin Urine Negative (Negative); Blood Urine Negative (Negative); Glucose Urine UA Negative (Normal); Ketones Urine Negative (Negative); Leukocyte Esterase Urine Negative (Negative); Nitrate Urine Negative (Negative); Protein Urine Trace (Negative); Specific Gravity, Urine 1.023 (1.005-1.030); Urine Appearance Clear (CLEAR); Urine Color Yellow (Yellow); pH Urine 5.5 (5-7)
[2024-02-09 00:31] LABS: Add Urine Microscopic? YES; Bacteria Urine Trace /hpf; Hyaline Casts Urine 2.46 /lpf; RBC Urine 0-2 /hpf (0-2); WBC Urine 0-5 /hpf (0-5)
[2024-02-09 00:51] LABS: Alanine Aminotransferase 15 U/L (0-33); Albumin Level 3.5 g/dL (3.5-5.2); Alkaline Phosphatase 173 U/L (35-105); Aspartate Amino Transferase 19 U/L (0-32); Blood Urea Nitrogen 12 mg/dL (6-20); Calcium 8.8 mg/dL (8.5-10.5); Carbon Dioxide 24 mmol/L (22-29); Chloride 104 mmol/L (98-107); Globulin 2.6 g/dL (1.3-4.6); Glomerular Filtration Rate 113.8 mL/min (90-130); Glucose 94 mg/dL (65-115); Osmolality Calculated 284 mOsm/kg (285-295); Sodium 137 mmol/L (136-145); Total Bilirubin 0.4 mg/dL (0.15-1.2); Total Protein 6.1 g/dL (6.6-8.7); Uric Acid 6.1 mg/dL (2.4-5.7)
[2024-02-09 00:55] LABS: UPRO/UCREAT Ratio 0.16 mg/mg CR; Urine Creatinine 143 mg/dL (28-217); Urine Protein Random 23 mg/dL
[2024-02-09] MEDS: NIFEdipine ER (24 hr) 30 mg Tablet 60 MG PO (01:11)
[2024-02-09] MEDS: labetalol 5 mg/mL SDV 20mL 80 MG IVP (01:14)
[2024-02-09] MEDS: hyDRALAzine 20 mg/mL INJ 1 mL 5 MG IVP (01:56)
[2024-02-09] MEDS: hyDRALAzine 20 mg/mL INJ 1 mL 10 MG IVP ×2 (02:30→17:40)
[2024-02-09] MEDS: labetalol 200 mg Tablet PO (03:39)
[2024-02-09] MEDS: hyDRALAzine 20 mg/mL INJ 1 mL IVP ×2 (05:17→18:46)
--- NOTE | 2024-02-09 07:15 | US_ITS ---
WS: [id number] BIOPHYSICAL PROFILE AMNIOTIC FLUID HISTORY: hypertension COMPARISON: 01/10/2024 Technically this is a nearly nondiagnostic exam predominately due to body habitus. position: Vertex. Cardiac activity: 130 bpm. Cervix: Not visualized Placenta not identified or accurately imaged. Parameters are as follows: Breathin Movement: 2 Tone: 2 Fluid volume: 2 Amniotic Fluid Index: 15.1 cm US/US OB BPP wo NST 46337 IMPRESSION: 1. Biophysical profile score: 8/8. 2. Technically this is a very limited evaluation of the fetus. 3. Normal heart rate.
[2024-02-09] MEDS: HYDROcodone-acetaminophen 5-325 mg Tablet 1 TAB PO (07:19)
[2024-02-09] MEDS: acetaminophen 500 mg Tablet 1000 MG PO (12:16)
[2024-02-09] MEDS: hyDRALAzine 25 mg Tablet PO (12:16)
[2024-02-09 14:19] LABS: Basophils % 0.3 %; Eosinophils # 0.2 10^3/uL (0.0-0.8); Eosinophils % 1.3 %; Hematocrit 33.8 % (36-47); Lymphocytes # 1.6 10^3/uL (0.8-4.8); Lymphocytes % 13.5 %; Mean Corpuscular HGB Conc 33.1 g/dL (30-55); Mean Corpuscular Hemoglobin 26.5 pg (27-33); Mean Corpuscular Volume 80.1 fl (85-98); Mean Platelet Volume 11.2 fL (7.4-10.4); Monocytes # 0.6 10^3/uL (0.2-0.9); Monocytes % 5.4 %; Neutrophils # 9.09 10^3/uL (1.8-7.7); Neutrophils % 77.4 %; Nucleated Red Blood Cells % 0 %; Platelet Count 195 10^3/cmm (157-399); Red Blood Count 4.22 10^6/uL (3.85-5.65); Red Cell Distribution Width 16.8 % (12.1-15.1); White Blood Count 11.75 10^3/uL (3.29-11.43)
[2024-02-09] MEDS: lactated ringers 1,000 ML 125 ML IV (14:24)
[2024-02-09] MEDS: famotidine 20 mg/2 mL INJ IVP (14:37)
[2024-02-09] MEDS: citric acid-sodium citrate 30 mL UDC PO (14:37)
[2024-02-09] MEDS: metoclopramide 5 mg/mL SDV 2 mL 10 MG IVP (14:38)
--- NOTE | 2024-02-09 14:38 | P.HP_ITS ---
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 She has been having some elevated blood pressures for the last 3 weeks. Previously, she had come to the hospital with elevated blood pressures and required treatment with labetalol, hydralazine, and Procardia XL to adequately treat her blood pressures. Her blood pressures have been doing quite well over the last 3 weeks but spiked again yesterday. Upon arrival to the hospital she was once again treated with labetalol, hydralazine, and Procardia XL. Her blood pressures improved but today has began to spike again. Despite being on Procardia XL 90 mg, and labetalol 40 mg twice a day as well as a dose of hydralazine, she has spiked a blood pressure into the 160s. Thankfully, her preeclamptic panel was negative. She did have a headache yesterday which has improved. She also some right upper quadrant pain which he think is associated with food. That is also resolved. Present Details : 1 Para: 0 Review of Systems 2 General: Reports: 10 or more systems reviewed and unremarkable except in HPI and below Const: Reports: fatigue; Denies: fever(s) Eyes: Denies: change in vision Card: Denies: chest pain Musc: Reports: back pain [place]/Lymph: Denies: easy bruising Medications/Allergies Home Medications Medication Instructions Recorded Confirmed Last Taken Type docosahexaenoic acid 200 mg 2 mg PO DAILY 09/23/23 01/11/24 01/11/24 History capsule ( DHA) fluticasone propionate 50 2 spray intranasal DAILY #16 grams 11/09/23 01/11/24 Unknown Rx mcg/actuation nasal spray,suspension (Flonase Allergy Relief) escitalopram oxalate 20 mg tablet 20 mg PO DAILY #90 tabs 12/01/23 02/09/24 02/08/24 09:00 Rx (Lexapro) hydralazine 25 mg PO TID 01/11/24 01/11/24 01/11/24 20:10 History ferrous sulfate 325 mg (65 mg 325 mg PO DAILY #30 tabs 02/11/24 Unknown Rx iron) tablet,delayed release hydrocodone 5 mg-acetaminophen 325 1 - 2 tab PO Q4H PRN Moderate To 02/11/24 Unknown Rx mg tablet Severe Pain #28 tabs labetalol 200 mg tablet 400 mg (2 x 200 mg) PO DAILY #120 02/11/24 Unknown Rx tabs nifedipine 90 mg tablet,extended 90 mg PO NOW #30 tabs 02/11/24 Unknown Rx release 24 hr (Procardia XL) Allergies Allergy/AdvReac Type Severity Reaction Status Date / Time amoxicillin Allergy Mild Rash, Hives Verified 02/09/24 00:31 doxycycline Allergy Mild rash, hives Verified 02/09/24 00:31 Penicillins Allergy Mild Rash, hives Verified 02/09/24 00:31 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 PFSH: Medical History Psychiatric care Hypertension taking lisinopril 10mg daily for management No pertinent past medical history neghx:dm,thyroid,dvt/pe PCP: Kiersten Denson PCO (polycystic ovaries) Surgical History No pertinent past surgical history Family History Father Heart disease Hypertension Grandmother Diabetes Maternal grandmother Family/Other Diabetes Maternal aunt Maternal uncle Hypertension Maternal uncle Denies family history of Colon cancer Ovarian cancer Hyperlipidemia Breast cancer Family history of thyroid problem Uterine cancer Stroke Social History Smoking and tobacco/nicotine status: unknown if used tobacco/nicotine History History History 2 1 Term 0 0 Miscarriages/Ectopic 0 Living Children 0 Vitals/I&O/Wt Last Vital Signs Temp 97.7 F 02/09/24 14:25 Pulse 83 02/09/24 14:13 BP 142/88 02/09/24 14:13 Weight last 48 hrs Weight 366 lb Physical Exam 2 Narrative: The patient is noted to have edema in her lower pannus. Const: COMMON NORMALS: patient oriented x3 and alert HENMT: COMMON NORMALS: moist oral mucous membranes HEAD & SCALP: normal to inspection Chest: COMMONS NORMALS: normal inspection of the chest Resp: COMMON NORMALS: clear to auscultation bilaterally AUSCULTATION: clear to auscultation bilaterally Cardio: COMMON NORMALS: regular rate and regular rhythm RATE: regular rate RHYTHM: regular rhythm GI: INSPECTION: Yes normal to inspection and Yes other (Gravid) Extremity: COMMON NORMALS: normal to inspection GENERAL: Yes edema (Trace) Neuro: COMMON NORMALS: patient oriented x3, moves all extremities and no sensory deficits noted SENSORIUM/ORIENTATION: Yes alert Psych: COMMON NORMALS: mental status grossly normal Skin: COMMON NORMALS: no rashes or lesions noted GENERAL SKIN EXAM: no rashes or lesions noted Data 02/11/24 06:06 02/09/24 00:15 Results Labs OB ([facility]): 2 Obstetrics US 08/20/23 Obstetrics US/Biophysical Profile Blood Type O Negative 02/09/24 Antibody Screen Positive 02/09/24 Hct 25.7 % (36-47) L 02/11/24 Hgb 8.00 g/dL (11.27-16.99) L 02/11/24 Rho(D) Type Rh negative 02/09/24 Plt Count 176 10^3/cmm (157-399) 02/11/24 Uric Acid 6.1 mg/dL (2.4-5.7) H 02/09/24 Ser , Semi-Qnt 06164.00 mIU/mL 08/20/23 HCG, Qual Negative (Negative) 11/30/22 A&P Assessment and plan (1) 35 weeks gestation of : Due to the patient's persistent elevated blood pressures, and due to the patient's gestational age of 35 weeks the patient and her baby would be best served to proceed with a delivery. Because the fetus is in transverse position, we will proceed with a section. We discussed the risks and benefits of the procedure. We discussed the risk of bleeding, infection, and damage to intra-abdominal organs. She is aware that because of her elevated BMI that her risks are more elevated than the typical patient. We had talked about the possibility of transferring her because of her risks and the risks of the baby because of the gestational age. We talked about the benefits of having the procedure done in [place]. After weighing the risks and benefits, she has decided to have the performed here in [place]. We will proceed at 330. Her last meal was breakfast at around 8:00. (2) Gestational hypertension without significant proteinuria: Attestations 2 Medical Necessity Statement*: I anticipate and post care the may require extra days due to her severe gestational hypertension Coding Level of Care Code Acute Code for Chg Fwd Diagnoses 35 weeks gestation of Z3A.35 Gestational hypertension without significant proteinuria O13.9
--- NOTE | 2024-02-09 15:26 | P.ANESASSM_ITS ---
Pre-Anesthetic Assessment Height/Weight: Height 1.5 m Weight 166.015 kg Temp Pulse BP O2 Del Method 97.7 F 83 142/88 Room Air 02/09/24 14:25 02/09/24 14:13 02/09/24 14:13 02/09/24 15:00 Familial anesthetic complications: None Was Beta Giselle taken within 24 hours: N/A Was Clonidine taken within 24 hours: N/A Last intake: breakfast before 8 am Social No alcohol and No tobacco Exam alert, oriented x 3, clear to auscultation bilaterally and regular rate & rhythm Airway Mallampati: Class III Dentition: full CV/HEM Hypertension Metabolic Morbid Obesity PCOS Anesthetic Plan ASA status: 4 Anesthesia: Regional (specify below) Risk of > 500 ml blood loss (7ml/kg in children): Yes, adequate IV access and fluids planned Medications/Allergies Home Medications Medication Instructions Recorded Confirmed Last Taken Type docosahexaenoic acid 200 mg 2 mg PO DAILY 09/23/23 01/11/24 01/11/24 History capsule ( DHA) fluticasone propionate 50 2 spray intranasal DAILY #16 grams 11/09/23 01/11/24 Unknown Rx mcg/actuation nasal spray,suspension (Flonase Allergy Relief) escitalopram oxalate 20 mg tablet 20 mg PO DAILY #90 tabs 12/01/23 02/09/24 02/08/24 09:00 Rx (Lexapro) hydralazine 25 mg PO TID 01/11/24 01/11/24 01/11/24 20:10 History labetalol 200 mg tablet 200 mg PO BID 01/11/24 02/09/24 02/08/24 History 0900 nifedipine 90 mg tablet,extended 90 mg PO DAILY #30 tabs 01/11/24 02/09/24 02/08/24 09:00 Rx release 24 hr (Procardia XL) Allergies Allergy/AdvReac Type Severity Reaction Status Date / Time amoxicillin Allergy Mild Rash, Hives Verified 02/09/24 00:31 doxycycline Allergy Mild rash, hives Verified 02/09/24 00:31 Penicillins Allergy Mild Rash, hives Verified 02/09/24 00:31 Current Medications Generic Name Dose Route Start Last Admin Trade Name Freq PRN Reason Stop Dose Admin Hydralazine HCl 20 mg 02/08/24 23:56 02/09/24 05:17 Hydralazine 20 Mg/Ml Inj 1 Ml IVP 20 mg PRN PRN Administration HYPERTENSION Protocol Hydralazine HCl 10 mg 02/08/24 23:56 02/09/24 02:30 Hydralazine 20 Mg/Ml Inj 1 Ml IVP 10 mg PRN PRN Administration HYPERTENSION Protocol Hydralazine HCl 5 mg 02/08/24 23:56 02/09/24 01:56 Hydralazine 20 Mg/Ml Inj 1 Ml IVP 5 mg PRN PRN Administration HYPERTENSION Protocol Hydralazine HCl 25 mg 02/09/24 12:15 02/09/24 12:16 Hydralazine 25 Mg Tablet PO 25 mg NOW XAVIER Administration Lactated Ringer's 1,000 mls @ 125 mls/hr 02/09/24 14:00 02/09/24 14:24 Lactated Ringers IV 125 mls/hr .Q8H XAVIER Administration Labetalol HCl 20 mg 02/08/24 23:56 02/09/24 00:24 Labetalol 5 Mg/Ml Sdv 20ml IVP 20 mg PRN PRN Administration HYPERTENSION Protocol Labetalol HCl 80 mg 02/08/24 23:56 02/09/24 01:14 Labetalol 5 Mg/Ml Sdv 20ml IVP 80 mg PRN PRN Administration HYPERTENSION Protocol Nifedipine 60 mg 02/09/24 01:05 02/09/24 01:11 Nifedipine Er (24 Hr) 30 Mg Tablet PO 60 mg ONCE XAVIER Administration PFSH Anesthesia Medical History Psychiatric care Hypertension taking lisinopril 10mg daily for management No pertinent past medical history neghx:dm,thyroid,dvt/pe PCP: Kiersten Denson PCO (polycystic ovaries) Surgical History No pertinent past surgical history Family History Father Heart disease Hypertension Grandmother Diabetes Maternal grandmother Family/Other Diabetes Maternal aunt Maternal uncle Hypertension Maternal uncle Denies family history of Colon cancer Ovarian cancer Hyperlipidemia Breast cancer Family history of thyroid problem Uterine cancer Stroke Social History Smoking and tobacco/nicotine status: unknown if used tobacco/nicotine Female Reproductive History : 1 Data Anesthesia 02/09/24 14:00 02/09/24 00:15 Short CBC 02/09/24 02/09/24 Range/Units 00:15 14:00 WBC 10.89 11.75 H (3.29-11.43) 10^3/uL Hgb 10.50 L 11.20 L (11.27-16.99) g/dL Hct 31.9 L 33.8 L (36-47) % MCV 82.0 L 80.1 L (85-98) fl Plt Count 188 195 (157-399) 10^3/cmm Neut % (Auto) 73.4 77.4 % Neut # (Auto) 7.99 H 9.09 H (1.8-7.7) 10^3/uL BMP 02/09/24 00:15 Sodium 137 Potassium 4.0 Chloride 104 Carbon Dioxide 24 BUN 12 Creatinine 0.6 Glucose 94 Calcium 8.8 Liver Function 02/09/24 Range/Units 00:15 Total Bilirubin 0.4 (0.15-1.2) mg/dL AST 19 (0-32) U/L ALT 15 (0-33) U/L Alkaline Phosphatase 173 H (35-105) U/L Albumin 3.5 (3.5-5.2) g/dL Urine 02/09/24 Range/Units 00:15 Urine Color Yellow (Yellow) Urine Appearance Clear (CLEAR) Urine pH 5.5 (5-7) Ur Specific [place] 1.023 (1.005-1.030) Urine Protein Trace A (Negative) Urine Glucose (UA) Negative (Normal) Urine Ketones Negative (Negative) Urine Nitrate Negative (Negative) Urine Bilirubin Negative (Negative) Ur Leukocyte Esterase Negative (Negative) Urine RBC 0-2 (0-2) /hpf Urine WBC 0-5 (0-5) /hpf Blood Bank 02/09/24 14:00 Blood Type O Negative Rho(D) Type Rh negative Cardiac Studies: 2 No Data to Display
[2024-02-09] MEDS: ceFAZolin 1,000 mg SDV 1000 MG IVP (16:13)
[2024-02-09] MEDS: BUPivacaine 0.5% INJ 30 mL INJECTION (16:13)
[2024-02-09] MEDS: ceFAZolin 2,000 mg SDV 2000 MG IVP (16:13)
--- NOTE | 2024-02-09 18:00 | ANE.PACU2 ---
Inpatient post-anesthesia follow up: Airway intact: Yes Vital signs: Temperature 98.1 F Pulse Rate 90 Respiratory Rate 18 Blood Pressure 145/68 Pulse Oximetry 94 Oxygen Delivery Me thod Room Air Oxygen Flow Rate Fraction of Inspir ed Oxygen Hydration adequate: Yes Nausea and vomiting: No Pain level: 1 Mental status: Baseline
--- NOTE | 2024-02-09 18:51 | PM.OP ---
Operative Report Date of procedure: February 09, 2024 Pre-op diagnosis: 1. 33-year-old 1 at 35 weeks estimated gestational age with gestational hypertension 2. Transverse position of infant Post-op diagnosis: Same Status post low-transverse section Procedure done: Low-transverse section Specimens removed/disposition: 1. Female with a weight of 2.18 g and Apgars of 3 7 and 9 2. Placenta with a three-vessel cord and delivered intact Surgeon: Yon Dalal MD Estimated blood loss (mL): 1,000 Complications: None Procedure: The patient was brought back to the operating room where she was prepped and draped in usual sterile fashion. Spinal anesthesia was found to be adequate. A lower transverse skin incision was then made with a #10 blade. I then dissected down to the underlying subcutaneous tissue until arriving at the prerectal fascia. The fascia was then nicked with the scalpel bilaterally. The fascial incisions were then carried laterally with House scissors. Attention was then turned to the superior aspect of the incision which was grasped with kochers and tented up away from the underlying rectus abdominis muscles. The muscles were then dissected away from the fascia manually, and later with House scissors. Attention was then turned to the inferior aspect of the incision, and the fascia was dissected away from the underlying muscle in similar fashion. The rectus abdominis muscles were then spread manually. The peritoneum was entered manually. An Alvaro O was placed. Excellent visualization of the uterus was noted. A lower transverse uterine incision was then made with a #10 blade. Upon arriving at the intrauterine cavity, the uterine incision was then extended manually. The was noted to be in transverse position. The baby was delivered without difficulty. After delivery of the head, the mouth and nose were suctioned at the site of the incision. There was no meconium. There was no nuchal cord. The baby was then delivered and placed on the abdomen. The cord was cut and clamped. The baby was then handed to Dr. Chawla. The placenta was removed intact. The uterus was externalized. The intrauterine cavity was cleansed of any remaining debris. The uterine incision was reapproximated in 2 layers. The first layer was performed with 0 Vicryl in a running locked stitch. The second layer was an imbricating stitch also using 0 Vicryl. The uterus was replaced into the abdomen. The peritoneum was then irrigated with warm saline. I reexamined the uterine incision and found it to be hemostatic. The fascia was then reapproximated using 0 Vicryl in running stitch. A SALVADOR drain was placed. The subcutaneous tissue was then reapproximated using 0 Vicryl in a running stitch. The skin was then reapproximated using 4-0 Vicryl in a running subcuticular stitch. Steri-Strips were placed.. A sterile dressing was placed. All counts were correct x2. Both the mother and baby were in stable condition.
[2024-02-09] MEDS: NIFEdipine ER (24 hr) 30 mg Tablet 90 MG PO (19:32)
[2024-02-09] MEDS: labetalol 200 mg Tablet 400 MG PO (19:32)
[2024-02-09] MEDS: diphenhydrAMINE 50 mg/mL SDV 1mL 25 MG IVP (20:58)
[2024-02-09] MEDS: escitalopram 10 mg Tablet 20 MG PO (20:59)
[2024-02-09] MEDS: dextrose 5%-lactated ringers 1,000 ML 125 ML IV (22:00)
[2024-02-09] MEDS: sodium chloride 0.9% 500 ML 999 ML IV (23:47)
[2024-02-09] MEDS: ketorolac 30 mg/mL INJ IVP (23:48)
[2024-02-10] VITALS (22 sets, daily range): BP systolic 121–171; BP diastolic 60–84; PULSE 67–90
[2024-02-10] MEDS: sodium chloride 0.9% 500 ML 999 ML IV (02:11)
[2024-02-10 02:20] LABS: Basophils % 0.2 %; Eosinophils # 0.1 10^3/uL (0.0-0.8); Eosinophils % 0.4 %; Lymphocytes # 1.6 10^3/uL (0.8-4.8); Lymphocytes % 11.6 %; Mean Corpuscular HGB Conc 32.9 g/dL (30-55); Mean Corpuscular Hemoglobin 27.4 pg (27-33); Mean Corpuscular Volume 83.3 fl (85-98); Monocytes % 6.9 %; Neutrophils # 10.98 10^3/uL (1.8-7.7); Neutrophils % 80.1 %; Nucleated Red Blood Cells % 0 %; Platelet Count 201 10^3/cmm (157-399); Red Blood Count 3.36 10^6/uL (3.85-5.65); Red Cell Distribution Width 16.8 % (12.1-15.1); White Blood Count 13.71 10^3/uL (3.29-11.43)
[2024-02-10] MEDS: ketorolac 30 mg/mL INJ IVP ×2 (04:20→11:38)
--- NOTE | 2024-02-10 06:57 | P.PN_ITS ---
[employer]PRESENT[employer]IVE Subjective 2 Subjective: Interval history: The patient has done relatively well . Her urine output has been marginal. She is received 2 500 mL boluses. She has been going up around. Her SALVADOR drain has been draining serosanguineous fluid and has been emptied multiple times through the night. Her blood pressures have been improved. Her pain is been well-controlled. There have been no concerns. Labor: Station: -5 Vitals/I&O/Wt Last Vital Signs Temp 97.7 F 02/09/24 14:25 Pulse 67 02/10/24 06:42 BP 141/79 02/10/24 06:42 O2 Del Method Room Air 02/09/24 15:00 02/09/24 02/09/24 02/10/24 14:59 22:59 06:59 Intake Total 800 / 800 500 / 1300 Output Total 1100 / 1100 215 / 1315 Balance -300 / -300 285 / -15 Weight last 48 hrs Weight 366 lb Physical Exam 2 Narrative: She is in no acute distress Lungs are clear auscultation bilaterally Her heart has a regular rate and rhythm Her fundus is below the umbilicus and firm Her dressing is clean, dry and intact Her extremities have trace edema Urinary Catheter Management: Padilla Latex: Cath Placed During This Visit: yes Reason for Continuing Indwelling Catheter: Required Immobilization for Trauma or Surgery or Anesthesia Urinary Catheter Date of Insertion: 02/09/24 Urinary Catheter Time of Insertion: 15:50 Data 02/11/24 06:06 02/09/24 00:15 A&P Assessment and plan (1) Gestational hypertension without significant proteinuria: (2) Status post : We will continue to monitor her urine output. Her vitals have been stable. Her pulse has been ranging in the 60s to 70s. (3) 35 weeks gestation of : Attestations 2 Medical Necessity Statement*: Routine post care Coding Level of Care Code Acute Code for Chg Fwd Diagnoses Gestational hypertension without significant proteinuria O13.9 Status post Z98.891 35 weeks gestation of Z3A.35
[2024-02-10] MEDS: dextrose 5%-lactated ringers 1,000 ML 125 ML IV ×3 (07:12→21:41)
[2024-02-10] MEDS: labetalol 200 mg Tablet 400 MG PO ×2 (08:50→18:23)
[2024-02-10 09:23] LABS: Basophils % 0.3 %; Eosinophils # 0.1 10^3/uL (0.0-0.8); Eosinophils % 0.8 %; Hematocrit 27.3 % (36-47); Lymphocytes # 1.9 10^3/uL (0.8-4.8); Lymphocytes % 18.1 %; Mean Corpuscular HGB Conc 30.8 g/dL (30-55); Mean Corpuscular Hemoglobin 26.7 pg (27-33); Mean Corpuscular Volume 86.7 fl (85-98); Mean Platelet Volume 11.1 fL (7.4-10.4); Monocytes # 0.8 10^3/uL (0.2-0.9); Monocytes % 7.6 %; Neutrophils # 7.74 10^3/uL (1.8-7.7); Neutrophils % 72.5 %; Nucleated Red Blood Cells % 0 %; Platelet Count 188 10^3/cmm (157-399); Red Blood Count 3.15 10^6/uL (3.85-5.65); Red Cell Distribution Width 17.1 % (12.1-15.1); White Blood Count 10.67 10^3/uL (3.29-11.43)
[2024-02-10] MEDS: HYDROcodone-acetaminophen 5-325 mg Tablet PO ×3 (13:32→22:39)
--- NOTE | 2024-02-10 13:41 | PC.NURSE ---
Fluid rate changed to 200 mls/hr at 10:03
[2024-02-10 20:14] LABS: Basophils % 0.4 %; Eosinophils # 0.2 10^3/uL (0.0-0.8); Eosinophils % 1.4 %; Hematocrit 25.6 % (36-47); Lymphocytes # 2.1 10^3/uL (0.8-4.8); Lymphocytes % 18.1 %; Mean Corpuscular HGB Conc 30.9 g/dL (30-55); Mean Corpuscular Hemoglobin 26.9 pg (27-33); Mean Corpuscular Volume 87.1 fl (85-98); Mean Platelet Volume 10.5 fL (7.4-10.4); Monocytes # 0.8 10^3/uL (0.2-0.9); Monocytes % 7.1 %; Neutrophils # 8.29 10^3/uL (1.8-7.7); Neutrophils % 72.6 %; Nucleated Red Blood Cells % 0 %; Platelet Count 163 10^3/cmm (157-399); Red Blood Count 2.94 10^6/uL (3.85-5.65); Red Cell Distribution Width 16.9 % (12.1-15.1); White Blood Count 11.41 10^3/uL (3.29-11.43)
[2024-02-10] MEDS: escitalopram 10 mg Tablet 20 MG PO (21:08)
[2024-02-11] VITALS (34 sets, daily range): BP systolic 125–174; BP diastolic 65–90; PULSE 68–89; RESP 16–17; TEMP 35.9–36.9; O2SAT 98
[2024-02-11] MEDS: NIFEdipine ER (24 hr) 30 mg Tablet PO (01:29)
[2024-02-11] MEDS: HYDROcodone-acetaminophen 5-325 mg Tablet PO ×2 (02:26→13:29)
--- NOTE | 2024-02-11 06:04 | PC.NURSE ---
no catheter in place
[2024-02-11 06:16] LABS: Basophils % 0.2 %; Eosinophils # 0.2 10^3/uL (0.0-0.8); Eosinophils % 1.7 %; Hematocrit 25.7 % (36-47); Lymphocytes # 1.7 10^3/uL (0.8-4.8); Mean Corpuscular HGB Conc 31.1 g/dL (30-55); Mean Corpuscular Hemoglobin 27.4 pg (27-33); Mean Platelet Volume 10.8 fL (7.4-10.4); Monocytes # 0.7 10^3/uL (0.2-0.9); Monocytes % 7.3 %; Neutrophils # 7.07 10^3/uL (1.8-7.7); Nucleated Red Blood Cells % 0 %; Platelet Count 176 10^3/cmm (157-399); Red Blood Count 2.92 10^6/uL (3.85-5.65); Red Cell Distribution Width 17.1 % (12.1-15.1); White Blood Count 9.69 10^3/uL (3.29-11.43)
[2024-02-11 06:24] LABS: Slide Review Slide Review Perform
[2024-02-11] MEDS: NIFEdipine ER (24 hr) 30 mg Tablet 60 MG PO (06:37)
[2024-02-11] MEDS: labetalol 200 mg Tablet 400 MG PO ×2 (07:34→17:26)
--- NOTE | 2024-02-11 08:01 | PC.NURSE ---
SALVADOR drain taken out by Dr. Dalal @[id number] about 20ml of serosanguineous fluid that was an morenita color.
[2024-02-11] MEDS: docusate sodium 100 mg Capsule PO ×2 (09:00→17:27)
[2024-02-11] MEDS: PRENATAL VIT NO.130/IRON/FOLIC 1 EACH TABLET PO (09:00)
[2024-02-11] MEDS: ibuprofen 800 mg tablet PO (09:00)
[2024-02-11] MEDS: NIFEdipine ER (24 hr) 30 mg Tablet 90 MG PO (10:48)
[2024-02-11] MEDS: dextrose 5%-lactated ringers 1,000 ML 125 ML IV (13:29)
[2024-02-11] MEDS: hyDRALAzine 25 mg Tablet PO ×2 (13:45→17:27)
--- NOTE | 2024-02-11 15:49 | PM.OBGYDC ---
Discharge Providers [facility]OOK JELLY Date of Admission: 02/09/24 13:54 Date of Discharge: 02/11/24 Attending Provider at Admission: Yon Dalal MD Attending Provider at Discharge: Yon Dalal MD Primary Care Provider: MELONY Nelson Diagnoses at Discharge Discharge Diagnosis (1) Gestational hypertension without significant proteinuria: Status: Acute (2) Status post : Status: Acute (3) 35 weeks gestation of : Status: Acute Reason for Visit Reason for Visit: Decreased movement, RUQ pain, elevated BP Information Peripartum Data: Infant Delivery Method: Physical Exam Narrative: She is in no acute distress Lungs are clear auscultation bilaterally Her heart has a regular rate and rhythm Her fundus is below the umbilicus and firm Her dressing is clean, dry and intact Her extremities have trace edema Urinary Catheter Management: Padilla Latex: Cath Placed During This Visit: yes, but has since been removed by the nurse Reason for Continuing Indwelling Catheter: Other Urinary Catheter Date of Insertion: 02/09/24 Urinary Catheter Time of Insertion: 15:50 Date Urinary Catheter Removed: 02/10/24 Time Urinary Catheter Discontinued: 14:42 History History History 1 Term 0 0 Miscarriages/Ectopic 0 Living Children 0 Discharge Data Studies Completed and Pending Completed Studies During Hospitalization Category Date Time Status US OB BPP wo NST 85351 Stat Ultrasound 02/09/24 07:15 Completed Pending at discharge Category Date Time Status Antibody Identification Routine Lab 02/09/24 14:00 Results Complete Crossmatch Routine Lab 02/09/24 14:00 Results Hemagram Timed Lab 02/10/24 05:00 Uncollected Rho D Immune Globulin Routine Lab 02/09/24 14:00 Results Type and Screen Routine Lab 02/09/24 14:00 Results Radiology Impressions Obstetrics US/Biophysical Profile 02/09/24 07:15 IMPRESSION: 1. Biophysical profile score: 8/8. 2. Technically this is a very limited evaluation of the fetus. 3. Normal heart rate. Laboratory Results WBC 9.69 10^3/uL (3.29-11.43) 02/11/24 06:06 RBC 2.92 10^6/uL (3.85-5.65) L 02/11/24 06:06 Hgb 8.00 g/dL (11.27-16.99) L 02/11/24 06:06 Hct 25.7 % (36-47) L 02/11/24 06:06 MCV 88.0 fl (85-98) 02/11/24 06:06 MCH 27.4 pg (27-33) 02/11/24 06:06 MCHC 31.1 g/dL (30-55) 02/11/24 06:06 RDW 17.1 % (12.1-15.1) H 02/11/24 06:06 Plt Count 176 10^3/cmm (157-399) 02/11/24 06:06 MPV 10.8 fL (7.4-10.4) H 02/11/24 06:06 Neut % (Auto) 73.0 % 02/11/24 06:06 Lymph % (Auto) 17.0 % 02/11/24 06:06 [place] % (Auto) 7.3 % 02/11/24 06:06 Eos % (Auto) 1.7 % 02/11/24 06:06 Baso % (Auto) 0.2 % 02/11/24 06:06 Neut # (Auto) 7.07 10^3/uL (1.8-7.7) 02/11/24 06:06 Lymph # (Auto) 1.7 10^3/uL (0.8-4.8) 02/11/24 06:06 [place] # (Auto) 0.7 10^3/uL (0.2-0.9) 02/11/24 06:06 Eos # (Auto) 0.2 10^3/uL (0.0-0.8) 02/11/24 06:06 Baso # (Auto) 0.0 10^3/uL (0.0-0.1) 02/11/24 06:06 Nucleated RBC % (auto) 0 % 02/11/24 06:06 Nucleated RBCs # 0.0 /100WBC 02/11/24 06:06 Sodium 137 mmol/L (136-145) 02/09/24 00:15 Potassium 4.0 mmol/L (3.5-5.1) 02/09/24 00:15 Chloride 104 mmol/L (98-107) 02/09/24 00:15 Carbon Dioxide 24 mmol/L (22-29) 02/09/24 00:15 Anion Gap 13.0 (5-19) 02/09/24 00:15 BUN 12 mg/dL (6-20) 02/09/24 00:15 Creatinine 0.6 mg/dL (0.5-0.9) 02/09/24 00:15 GFR Calculation 113.8 mL/min (90-130) 02/09/24 00:15 Glucose 94 mg/dL (65-115) 02/09/24 00:15 Calculated Osmolality 284 mOsm/kg (285-295) L 02/09/24 00:15 Uric Acid 6.1 mg/dL (2.4-5.7) H 02/09/24 00:15 Calcium 8.8 mg/dL (8.5-10.5) 02/09/24 00:15 Total Bilirubin 0.4 mg/dL (0.15-1.2) 02/09/24 00:15 AST 19 U/L (0-32) 02/09/24 00:15 ALT 15 U/L (0-33) 02/09/24 00:15 Alkaline Phosphatase 173 U/L (35-105) H 02/09/24 00:15 Total Protein 6.1 g/dL (6.6-8.7) L 02/09/24 00:15 Albumin 3.5 g/dL (3.5-5.2) 02/09/24 00:15 Globulin 2.6 g/dL (1.3-4.6) 02/09/24 00:15 Urine Color Yellow (Yellow) 02/09/24 00:15 Urine Appearance Clear (CLEAR) 02/09/24 00:15 Urine pH 5.5 (5-7) 02/09/24 00:15 Ur Specific [place] 1.023 (1.005-1.030) 02/09/24 00:15 Urine Protein Trace (Negative) A 02/09/24 00:15 Urine Glucose (UA) Negative (Normal) 02/09/24 00:15 Urine Ketones Negative (Negative) 02/09/24 00:15 Urine Blood Negative (Negative) 02/09/24 00:15 Urine Nitrate Negative (Negative) 02/09/24 00:15 Urine Bilirubin Negative (Negative) 02/09/24 00:15 Urine Urobilinogen 1.0 mg/dL (Negative) 02/09/24 00:15 Ur Leukocyte Esterase Negative (Negative) 02/09/24 00:15 Urine RBC 0-2 /hpf (0-2) 02/09/24 00:15 Urine WBC 0-5 /hpf (0-5) 02/09/24 00:15 Ur Squamous Epith Cells 6-10 /hpf (0-5) 02/09/24 00:15 Amorphous Sediment Not Reportable 02/09/24 00:15 Urine Bacteria Trace /hpf (NONE) 02/09/24 00:15 Hyaline Casts 2.46 /lpf 02/09/24 00:15 U Random Total Protein 23 mg/dL 02/09/24 00:15 Urine Creatinine 143 mg/dL (28-217) 02/09/24 00:15 Protein/Creatinin Ratio 0.16 mg/mg CR 02/09/24 00:15 Blood Type O Negative 02/09/24 14:00 Rho(D) Type Rh negative 02/09/24 14:00 Antibody Screen Positive 02/09/24 14:00 Antibody Identification Anti-D 02/09/24 14:00 Screen Negative (Negative) 02/10/24 02:13 Vitals Last Vital Signs Temp 98.2 F 02/11/24 10:50 Pulse 79 02/11/24 15:43 Resp 17 02/11/24 10:50 BP 159/77 02/11/24 15:43 Pulse Ox 94 02/09/24 17:45 O2 Del Method Room Air 02/09/24 17:45 Results Labs OB ([facility]): Obstetrics US 08/20/23 Obstetrics US/Biophysical Profile 02/09/24 Blood Type O Negative 02/09/24 Antibody Screen Positive 02/09/24 Hct 25.7 % (36-47) L 02/11/24 Hgb 8.00 g/dL (11.27-16.99) L 02/11/24 Rho(D) Type Rh negative 02/09/24 Plt Count 176 10^3/cmm (157-399) 02/11/24 Uric Acid 6.1 mg/dL (2.4-5.7) H 02/09/24 Ser , Semi-Qnt 56663.00 mIU/mL 08/20/23 HCG, Qual Negative (Negative) 11/30/22 Discharge Plan Discharge Patient Disposition: Home Condition: Stable Prescriptions: New labetalol 200 mg Tablet 400 mg PO DAILY Qty: 120 1RF hydrocodone-acetaminophen 5-325 mg Tablet 1 - 2 tab PO Q4H PRN (Reason: Moderate To Severe Pain) Qty: 28 0RF ferrous sulfate 325 mg (65 mg iron) Tablet,Delayed Release (Dr/Ec) 325 mg PO DAILY Qty: 30 2RF nifedipine [Procardia XL] 90 mg tablet extended release 24hr 90 mg PO NOW Qty: 30 1RF Continued DHA 200 mg capsule 2 mg PO DAILY escitalopram oxalate [Lexapro] 20 mg tablet 20 mg PO DAILY Qty: 90 0RF Rx Instructions: Take one tablet by mouth every evening fluticasone propionate [Flonase Allergy Relief] 50 mcg/actuation spray,suspension 2 spray intranasal DAILY Qty: 16 0RF Rx Instructions: administer into each nostril hydralazine 25 mg PO TID Discontinued nifedipine [Procardia XL] 90 mg tablet extended release 24hr 90 mg PO DAILY Qty: 30 3RF labetalol 200 mg tablet 200 mg PO BID Discharge Orders: Discharge Order (Routine); Ordered 02/11/24 Ordered By: Yon Dalal Referrals: Yon Dalla MD [Physician] - 02/16/24 (Appointment has already been scheduled.) Discharge Diet: Usual diet Discharge Activity: Limit activity as instructed Patient Instructions: Depression (DC), Opioid Safety (DC), Preeclampsia and Eclampsia After Delivery (GEN), Hemorrhage (DC), OB - [place], OB Discharge Report, OB Food/Drug Interaction Guide, OB Care at Home, Opioid Safety, Abnormal Bleeding Discharge Attestations COOK JELLY Time Spent in Discharge Care*: greater than 30 min Coding Level of Care Code Acute Code for Chg Fwd Diagnoses Gestational hypertension without significant proteinuria O13.9 Status post Z98.891 35 weeks gestation of Z3A.35
[2024-02-11] MEDS: ferrous sulfate EC 325 mg Tablet PO (17:27)
--- NOTE | 2024-02-12 11:22 | PC.NURSE ---
PATIENT PRESENTED FOR RHOGAM INJECTION. PATIENT HAD DISCHARGED PRIOR TO RECEIVING INJECTION, PATIENT STILL HAD ON ID AND BLOOD BANK BRACELETS FROM [id number], RHOGAM OBTAINED FROM BLOOD BAND AND VERIFIED WITH BLOOD BAND STAFF PER POLICY, RHOGAM INJECTION AND PATIENT IDENTIFIERS VERIFIED AT PATIENT SIDE BY RANDI. SEE [id number]
== END 2024-02-11 18:44 | disposition home or self-care (01) | DRG 788 ==
LOC: OPOB 13:54 → OBGYN 13:54
PROVIDERS: Admitting Provider Family Medicine; PCP Nurse Practitioner Family; Visit Provider Family Medicine
PROC: 10D00Z1 Extraction of Products of Conception, Low, Open Approach (ICD-10-PCS; CPT 59514; principal; 2024-02-09 15:30)
DX: O60.13X0 Preterm labor second trimester with preterm delivery third trimester, not applicable or unspecified (principal); O13.4 Gestational [pregnancy-induced] hypertension without significant proteinuria, complicating childbirth; O32.2XX0 Maternal care for transverse and oblique lie, not applicable or unspecified; Z3A.35 35 weeks gestation of pregnancy; Z37.0 Single live birth
CPT/HCPCS: 36415; 51702; 59025; 59409; 76819; 80053; 80503; 81001; 82570; 84156; 84550; 85025; 85460; 86850; 86870; 86900; 90384; 96374; 96376; 98960; 99211; J0360; J0690; J1200; J1885; J2274; J2371; J2405; J2765; J3010; J3490; J7040; J7120; J7121